=== PATIENT | male | born 1950 | race Caucasian/White ===

== ENCOUNTER 2020-09-29 09:02 | Inpatient (IN) ==
--- NOTE | 2020-09-29 09:16 | Emergency Department Note ---
HPI General Chief complaint: Fall Stated complaint: Fall, down for several days Time Seen by Provider: 09/29/20 09:06 Source: EMS Mode of arrival: EMS Limitations: no limitations History of Present Illness HPI Narrative: Narrative: Patient presents emergency department via EMS for evaluation of generalized weakness. He was last seen 8 days ago. He was found by his ex-spouse on the floor this morning. EMS found patient on the floor complaining of generalized pain including neck pain. He was found to have weakness on the left side. C- collar was placed and the patient was transported to the emergency department for further evaluation. Patient does not know how long is been on the floor. Does not recall falling to the floor. Complains of generalized pain. Clothes are saturated in urine and soiled. No other complaints. Related Data Previous Rx's Medication Instructions Recorded quetiapine 50 mg tablet 50 mg PO QHS #90 tab 08/29/20 lisinopril 10 mg tablet 10 mg PO QDAY #90 tab 09/01/20 simvastatin 40 mg tablet 40 mg PO QHS #90 tab 09/01/20 acetaminophen 300 mg-codeine 60 mg 1 tab PO Q4-6H PRN #560 tab 09/21/20 tablet baclofen 10 mg tablet 10 mg PO BID PRN #60 tab 09/21/20 Allergies Allergy/AdvReac Type Severity Reaction Status Date / Time No Known Drug Allergies Allergy Verified 09/29/20 09:02 Review of Systems ROS ROS Narrative: Narrative: As above, all other system reviewed and negative. PFS Narrative Patient History Narrative: Narrative: Reviewed Medical/Surgical/Family History All Active Problems (Updated 09/29/20 @ 12:46 by Hu Banks MD) Rhabdomyolysis (Acute) Acute renal failure (Acute) Acute hypernatremia (Acute) Weakness (Acute) Acute dehydration (Acute) Renal failure, chronic (Chronic) Arthritis (Chronic) Insomnia (Chronic) History of MRI of lumbar spine (Chronic ~2004) Encounter for health-related screening (Chronic) Low back pain (Chronic) Encounter for special screening examination for neoplasm of prostate (Chronic) Vitiligo (Chronic) Hyperlipidemia (Chronic) Lumbar radiculopathy (Chronic) Dermatitis (Chronic) Vitamin D deficiency, unspecified (Chronic) Abnormal levels of other serum enzymes (Chronic) Blood glucose abnormal (Chronic) Hypertension (Chronic) Medical History (Updated 09/29/20 @ 12:46 by Hu Banks MD) Abnormal levels of other serum enzymes Arthritis Blood glucose abnormal Dermatitis Encounter for health-related screening Encounter for special screening examination for neoplasm of prostate History of MRI of lumbar spine (~2004) Also went to [facility] Hyperlipidemia Hypertension Insomnia Low back pain Lumbar radiculopathy Vitamin D deficiency, unspecified Vitiligo Surgical History No pertinent past surgical history Family History Mother Throat cancer Sister Breast cancer Social History Smoking Status: Never smoker Exam Narrative Narrative: Narrative: Vital signs reviewed please see nursing documentation. General Limitations: no limitations Head Head: Present normocephalic and other (Pressure sore to left cheek) Eye Eye: Present normal appearance and PERRL Neck Neck: Present other (C-collar in place) Respiratory Respiratory: Absent respiratory distress Rectal Rectal: Present other (Skin breakdown over sacrum) Extremities Extremities: Present other (Multiple pressure sores to upper and lower extremities) Back Back: Present other (Generalized tenderness palpation over the thoracic and lumbar spine, no localizing bony tenderness, no swelling, abrasion, or ecchymosis.) Neurological Neurological: Present alert and other (Mail List Librarian strength weak but equal bilaterally, able to wiggle toes bilaterally, unable to lift either leg off the exam table.) Psychiatric Psychiatric: Present normal affect Skin Skin: Present other (Multiple areas of skin breakdown and pressure ulcers.) Course Vital Signs Vital signs: Vital Signs Temperature 96.7 F L 09/29/20 09:03 Pulse Rate 118 H 09/29/20 09:03 Respiratory Rate 22 09/29/20 09:03 Blood Pressure 174/160 09/29/20 09:03 Pulse Oximetry (%) 96 09/29/20 09:03 Temperature 98.1 F 09/29/20 12:15 Pulse Rate 91 H 09/29/20 12:15 Respiratory Rate 22 09/29/20 12:15 Blood Pressure 130/90 09/29/20 12:15 Pulse Oximetry (%) 97 09/29/20 12:15 [facility] MDM Narrative Medical decision making narrative: Narrative: Patient is hydrated IV fluids. Chest x-ray showed no acute cardiopulmonary pathology. CT brain and cervical spine are pending at time of dictation. I spoke with Dr. Chairez on-call hospitalist. Case reviewed in detail over the phone. Hospitalist evaluate the patient emergency department and agreed with admission. Discussed findings with the patient. His questions are answered. He is agreeable with the plan. Lab Data Result diagrams: 09/29/20 09:34 09/29/20 09:33 Labs: Lab Results 09/29/20 09/29/20 09/29/20 Range/Units 09:33 09:34 09:55 WBC 18.9 H (4.5-11.0) K/mcL RBC 4.08 L (4.50-5.90) M/mcL Hgb 13.7 (13.5-16.5) g/dL Hct 41.9 (41.0-55.0) % MCV 102.7 H (80.0-100.0) fL MCH 33.6 (26.0-34.0) pg MCHC 32.7 (31.0-36.0) g/dL RDW 12.6 (11.5-14.5) % Plt Count 296 (140-440) K/mcL MPV 11.3 H (7.4-10.4) fL Neut % (Auto) 85.4 H (38.0-78.0) % Lymph % (Auto) 5.2 L (15.0-49.0) % [place] % (Auto) 8.9 (1.0-12.0) % Eos % (Auto) 0.1 (0.0-7.0) % Baso % (Auto) 0.4 (0.0-2.0) % Lymph # (Auto) 0.98 L (1.50-4.80) K/mcL [place] # (Auto) 1.68 H (0.10-0.90) K/mcL Eos # (Auto) 0.02 (0.00-0.70) K/mcL Baso # (Auto) 0.07 (0.00-0.20) K/mcL Absolute Neutrophils 16.13 H (1.80-8.00) K/mcL Sodium 149 H (133-145) mmol/L Potassium 4.7 (3.3-5.1) mmol/L Chloride 104 (96-108) mmol/L Carbon Dioxide 21 L (22-30) mmol/L Anion Gap 24.0 H (8.0-16.0) BUN 163 H* (8-23) mg/dL Creatinine 3.4 H (0.7-1.2) mg/dL GFR Calculation 17 Glucose 171 H (70-105) mg/dL Calcium 10.4 (8.6-10.4) mg/dL Total Bilirubin 0.6 (0.1-1.0) mg/dL AST 104 H (<40) U/L ALT 124 H (<40) U/L Alkaline Phosphatase 102 (39-117) U/L Total Creatine Kinase 2293 H (24-195) U/L Total Protein 7.4 (5.9-8.4) gm/dL Albumin 3.5 (3.2-5.2) gm/dL Globulin 3.9 H (2.2-3.7) gm/dL Albumin/Globulin Ratio 0.9 L (1.0-2.3) Urine Color Yellow Urine Appearance Hazy A (Clear) Urine pH 5.0 (5.0-9.0) Ur Specific [place] 1.015 (1.000-1.035) Urine Protein Negative (Negative) mg/dL Urine Glucose (UA) Negative (Negative) mg/dL Urine Ketones Negative (Negative) mg/dL Urine Occult Blood 0.20 (Negative) mg/dL Urine Nitrate Negative (Negative) Urine Bilirubin Negative (Negative) mg/dL Urine Urobilinogen Negative mg/dL Ur Leukocyte Esterase Negative (Negative) /ug Urine RBC 7 H (0-3) /hpf Urine WBC 1 (0-4) /hpf Ur Squamous Epith Cells < 1 (0-4) /hpf Urine Bacteria None (0) /hpf Hyaline Casts 14 H (0-2) /lph Urine Mucus Few A (None) /hpf Ur Culture Indicated? No ED POC Tests ED POC Tests: SHY - SARS Antigen Negative Discharge Plan Patient/Caregiver Discharge Instructions Pt seen by SQUEEZER OPERATOR/PA only: No Clinical Impression: Rhabdomyolysis, Acute renal failure, Acute hypernatremia, Weakness, Acute dehydration Patient Disposition: Xfer As Inpt ([facility]) Follow up with: Shelia Boyd ARNP [Primary Care Provider] - Prescriptions: No Action quetiapine [Seroquel] 50 mg tablet 50 mg PO QHS Qty: 90 RF: 0 baclofen 10 mg tablet 10 mg PO BID PRN (Reason: spasms) Qty: 60 RF: 1 acetaminophen-codeine 300-60 mg tablet 1 tab PO Q4-6H PRN (Reason: pain) Qty: 560 RF: 0 lisinopril 10 mg tablet 10 mg PO QDAY Qty: 90 RF: 3 simvastatin 40 mg tablet 40 mg PO QHS Qty: 90 RF: 1
[2020-09-29] MEDS ORDERED: fentaNYL 100 MCG/2 ML VIAL IV ONE (09:53)
[2020-09-29] MEDS ORDERED: 0.9 % SODIUM CHLORIDE 1,000 ML IV ONE ×2 (10:01→11:00)
--- NOTE | 2020-09-29 10:12 | XRay Report ---
INDICATION: weakness TECHNIQUE: AP portable upright chest x-ray COMPARISON: Previous chest x-ray dated 03/30/2007 FINDINGS: Lungs:Lungs are negative. No focal pulmonary parenchymal infiltrate or mass Heart, vascular:No significant cardiomegaly. Pulmonary vascularity is normal. No pulmonary edema or pulmonary congestion Mediastinum, [place]:No mediastinal widening. No hilar mass Pleura:No pleural fluid. No pleural-based mass or calcification Skeletal:Negative. IMPRESSION: 1. Negative AP chest x-ray 2. No significant interval change Interpreted and Authenticated by: Liam Rubio 09/29/20
[2020-09-29 10:22] LABS: Basophils # (Auto) 0.07 K/mcL (0.00-0.20); Basophils % (Auto) 0.4 % (0.0-2.0); Eosinophils # (Auto) 0.02 K/mcL (0.00-0.70); Eosinophils % (Auto) 0.1 % (0.0-7.0); Hematocrit 41.9 % (41.0-55.0); Hemoglobin 13.7 g/dL (13.5-16.5); Lymphocytes # (Auto) 0.98 K/mcL (1.50-4.80); Lymphocytes % (Auto) 5.2 % (15.0-49.0); Mean Cell Volume 102.7 fL (80.0-100.0); Mean Corpuscular HGB Conc 32.7 g/dL (31.0-36.0); Mean Platelet Volume 11.3 fL (7.4-10.4); Monocytes # (Auto) 1.68 K/mcL (0.10-0.90); Monocytes % (Auto) 8.9 % (1.0-12.0); Neutrophils % (Auto) 85.4 % (38.0-78.0); Platelet Count 296 K/mcL (140-440); RBC 4.08 M/mcL (4.50-5.90); Red Cell Distribution Width 12.6 % (11.5-14.5); WBC 18.9 K/mcL (4.5-11.0)
[2020-09-29 10:54] LABS: ALT/SGPT 124 U/L (<40); AST/SGOT 104 U/L (<40); Albumin 3.5 gm/dL (3.2-5.2); Albumin/Globulin Ratio 0.9 (1.0-2.3); Alkaline Phosphatase 102 U/L (39-117); Bilirubin,Total 0.6 mg/dL (0.1-1.0); Blood Urea Nitrogen 163 mg/dL (8-23); Calcium 10.4 mg/dL (8.6-10.4); Carbon Dioxide 21 mmol/L (22-30); Chloride 104 mmol/L (96-108); Creatine Kinase 2293 U/L (24-195); Globulin 3.9 gm/dL (2.2-3.7); Glomerular Filtration Rate 17; Glucose 171 mg/dL (70-105)
--- NOTE | 2020-09-29 11:58 | Internal Med History&Physical ---
HPI History of Present Illness Patient information: Note initiated : 09/29/20 at 11:53 am Service Date, if different from initiated Date: [] Patient: Baldemar Polanco 69 y/o M admitted on for Fall, Down For Several Days. Chief Complaint: [] History of present illness: Mr. Polanco is a 69 year old M Presents to the ED by EMS after the ex-spouse found him lying on the ground covered with feces and urine. She last spoke with him 8 days ago. Looks like he had a primary care visit on the . Had generalized pain including neck pain and came in with a c-collar. Poor historian not able to give much of the history. Sounds like there was a question of some left-sided weakness but Work-up in the ED revealed hyponatremia and acute kidney injury with rhabdomyolysis. Urinalysis pending. Review of Systems: Says he has some headache and some fever chills. No chest or abdominal pain. PFSH PFSH All Active Problems Renal failure, chronic (Chronic) Arthritis (Chronic) Insomnia (Chronic) History of MRI of lumbar spine (Chronic ~2004) Encounter for health-related screening (Chronic) Low back pain (Chronic) Encounter for special screening examination for neoplasm of prostate (Chronic) Vitiligo (Chronic) Hyperlipidemia (Chronic) Lumbar radiculopathy (Chronic) Dermatitis (Chronic) Vitamin D deficiency, unspecified (Chronic) Abnormal levels of other serum enzymes (Chronic) Blood glucose abnormal (Chronic) Hypertension (Chronic) Medical History Abnormal levels of other serum enzymes Arthritis Blood glucose abnormal Dermatitis Encounter for health-related screening Encounter for special screening examination for neoplasm of prostate History of MRI of lumbar spine (~2004) Also went to [facility] Hyperlipidemia Hypertension Insomnia Low back pain Lumbar radiculopathy Vitamin D deficiency, unspecified Vitiligo Surgical History No pertinent past surgical history Family History Mother Throat cancer Sister Breast cancer Social History marital status: single occupational status: retired [employer] Home Medications and Allergies Home Medications Medication Instructions Recorded Confirmed Type quetiapine 50 mg tablet 50 mg PO QHS #90 tab 08/29/20 09/21/20 Rx lisinopril 10 mg tablet 10 mg PO QDAY #90 tab 09/01/20 09/21/20 Rx simvastatin 40 mg tablet 40 mg PO QHS #90 tab 09/01/20 09/21/20 Rx acetaminophen 300 mg-codeine 60 mg 1 tab PO Q4-6H PRN #560 tab 09/21/20 09/21/20 Rx tablet baclofen 10 mg tablet 10 mg PO BID PRN #60 tab 09/21/20 09/21/20 Rx Allergies Allergy/AdvReac Type Severity Reaction Status Date / Time No Known Drug Allergies Allergy Verified 09/29/20 09:02 EXAM Constitutional Vitals: Temp Pulse Resp BP Pulse Ox 97.9 F 96 H 22 134/93 98 09/29/20 11:30 09/29/20 11:15 09/29/20 11:30 09/29/20 11:30 09/29/20 11:15 Exam: General: Drowsy,, No acute Distress Eyes/N/T: EOMI, PERRL, dry MM Head/Neck: neck supple, normocephalic atraumatic CV: RRR, No murmurs, normal s1/s2 Pulm: Clear b/l, no wheezing/rhonchi/rales Abd: soft, nontender, +BS x4 Ext: no clubbing/cyanosis/edema Neuro: Drowsy but awakens mentation much improved from when he initially came to the ED. Told me his full name and his address. Not to place. Follows commands. His getter filler strength bilaterally appears symmetrical although very weak. Lower extremities severely weak symmetrically. Skin: warm/dry DATA Data Completed and Pending Labs: Labs from last 24 hours 09/29/20 09/29/20 09/29/20 09:55 09:34 09:33 WBC 18.9 H RBC 4.08 L Hgb 13.7 Hct 41.9 MCV 102.7 H MCH 33.6 MCHC 32.7 RDW 12.6 Plt Count 296 MPV 11.3 H Neut % (Auto) 85.4 H Lymph % (Auto) 5.2 L [place] % (Auto) 8.9 Eos % (Auto) 0.1 Baso % (Auto) 0.4 Lymph # (Auto) 0.98 L [place] # (Auto) 1.68 H Eos # (Auto) 0.02 Baso # (Auto) 0.07 Absolute Neutrophils 16.13 H Sodium 149 H Potassium 4.7 Chloride 104 Carbon Dioxide 21 L Anion Gap 24.0 H BUN 163 H* Creatinine 3.4 H GFR Calculation 17 Glucose 171 H Calcium 10.4 Total Bilirubin 0.6 AST 104 H ALT 124 H Alkaline Phosphatase 102 Total Creatine Kinase 2293 H Total Protein 7.4 Albumin 3.5 Globulin 3.9 H Albumin/Globulin Ratio 0.9 L Urine Color Pending Urine Appearance Pending Urine pH Pending Ur Specific [place] Pending Urine Protein Pending Urine Glucose (UA) Pending Urine Ketones Pending Urine Occult Blood Pending Urine Nitrate Pending Urine Bilirubin Pending Urine Urobilinogen Pending Ur Leukocyte Esterase Pending A/P Narrative A/P Narrative: A: *ZOHRA on CKD III: *Rhabdomyolysis: 2/2 [address] *Hypernatremia: 2/2 dehydration *Leukocytosis: reactive vs infection, afebrile, pending UA, CXR unremarkable *Encephalopathy: 2/2 above, mentations started improving in ED after IVF's *HTN/HLD: *Chronic LBP: *Generalized weakness/deconditioning/fall: *Transaminitis: * P: -bicarb gtt, f/u UA pH -f/u sodium and cpk -pending UA -hold home ACEI for zohra -cont home baclofen -CT brain c-spine pending - -PT/OT -ppx: Heparin Time Spent With Patient Time: Total time spent is greater than 50% in coordination of care (as docu mented) at patient's floor/unit and/or counseling patient:
[2020-09-29 12:17] LABS: Appearance,Urine HAZY (Clear); Bilirubin,Urine Negative (Negative); Color,Urine YELLOW; Culture Indicated,Urine No; Glucose,Urine (UA) Negative (Negative); Ketones,Urine Negative (Negative); Leukocyte Esterase,Urine Negative /ug (Negative); Mucus,Urine FEW /hpf; Nitrate,Urine Negative (Negative); Protein,Urine Negative (Negative); Specific Gravity,Urine 1.015 (1.000-1.035); Urine Hyaline Cast 14 /lph (0-2); Urine RBC 7 /hpf (0-3); Urine Squamous Epithelial Cell < 1 /hpf (0-4); Urine WBC 1 /hpf (0-4); Urobilinogen,Urine Negative
--- NOTE | 2020-09-29 13:01 | Cat Scan Report ---
INDICATION: S/p fall, L sided weakness COMPARISON: None. TECHNIQUE: Axial noncontrast-enhanced images through the brain. Sagittally and coronally reformatted images. FINDINGS: Cerebral hemispheres:No intra-axial hemorrhage. There is cerebral atrophy with enlarged superficial subarachnoid spaces and ventricles. No focal intra-axial attenuation abnormality or localized mass effect. No midline shift. Brainstem and cerebellum:No intra-axial abnormality Extra-axial:No acute hemorrhage. No subdural or epidural hematoma. No subarachnoid hemorrhage. Basilar cisterns are normal Calvarial:No calvarial fracture. No lytic lesion Temporal bones are negative. No destructive lesions Soft tissue, orbits, sinuses:Orbits and visualized facial soft tissues are negative. Mild inflammatory mucosal thickening within ethmoid and left frontal sinuses Nasal bones are angulated toward the right. Nasal bones are not well evaluated and fractures are not excluded IMPRESSION: 1. Cerebral atrophy 2. No acute intracranial hemorrhage 3. Mild inflammatory disease in the paranasal sinuses The exam was performed using radiation dose optimization techniques including, but not limited to, automated exposure control, adjustment of the mA and/or kV according to patient size and use of iterative reconstruction technique. Interpreted and Authenticated by: Liam Rubio 09/29/20
--- NOTE | 2020-09-29 13:07 | Cat Scan Report ---
INDICATION: s/p fall, L sided weakness, neck pain COMPARISON: None. TECHNIQUE: Axial thin section images through the cervical spine. Sagittally and coronally reformatted images. The exam was performed using radiation dose optimization techniques including, but not limited to, automated exposure control, adjustment of the mA and/or kV according to patient size and use of iterative reconstruction technique. FINDINGS: Vertebral bodies, spinous processes:No vertebral body or spinous process fracture. No acute abnormality. Alignment is anatomic without anterolisthesis Normal odontoid process. No fracture. Occipital condyles and C1 are negative. No atlantoaxial subluxation. There are changes consistent with DISH. No acute posttraumatic abnormality. Facets:No perched or locked facet. No facet complex fracture. Disc spaces:Marked degenerative disc narrowing at C2-C3, C3-C4, C4-C5, C5-C6, C6-C7. No detectable soft tissue disc herniation Temporal bones:Negative. No basilar skull fracture Cervical soft tissues:Negative. No prevertebral soft tissue swelling. No focal soft tissue mass or acute abnormality Lung apices:No pneumothorax. No pulmonary contusion. IMPRESSION: 1. 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 No cervical spine fracture Interpreted and Authenticated by: Liam Rubio 09/29/20
[2020-09-29 13:38] LABS: POC Blood Urea Nitrogen > 140 mg/dL; POC CO2 22 mmol/L (22-30); POC Calcium, Ionized 1.08 mmEq/L (1.16-1.32); POC Chloride 116 mEq/L (96-108); POC Creatinine 3.4 mg/dL (0.6-1.2); POC Glucose, Random 142 mg/dL (70-105); POC Hematocrit 31 % (41-55); POC Potassium 4.2 mEql/L (3.3-5.1); POC Sodium 150 mEq/L (133-145)
[2020-09-29] MEDS ORDERED: DEXTROSE 5% IN WATER 500 ML IV SCH (14:30)
[2020-09-29 14:31] LABS: Lymphocytes % 5 % (15-49); Macrocytosis 1+ (None Seen); Metamyelocytes % 1 %; Monocytes % (Manual) 4 % (1-12); Platelet Estimate NORMAL (Normal); RBC Morphology ABNORMAL (Normal); Reactive Lymphocytes 1 % (0-2); Segmented Neutrophils % 89 % (38-78)
[2020-09-29] MEDS ORDERED: ACETAMINOPHEN 325 MG TABLET PO PRN (14:42)
[2020-09-29] MEDS ORDERED: IPRATROPIUM/ALBUTEROL 3 ML AMPUL.NEB NEB PRN (14:42)
[2020-09-29] MEDS ORDERED: SENNOSIDES 1 TABLET PO PRN (14:42)
[2020-09-29] MEDS ORDERED: POTASSIUM CHLORIDE 20 MEQ TABLET PO PRN ×2 (14:42)
[2020-09-29] MEDS ORDERED: ONDANSETRON 4 MG/2 ML VIAL IV PRN (14:42)
[2020-09-29] MEDS ORDERED: POTASSIUM CHLORIDE 40 MEQ in DEXTROSE 5% IN WATER 500 ML IV PRN (14:42)
[2020-09-29] MEDS ORDERED: MAGNESIUM SULFATE 2 GM/50 ML BAG IV PRN (14:42)
[2020-09-29] MEDS ORDERED: POLYETHYLENE GLYCOL 3350 17 GM PACKET PO PRN (14:42)
[2020-09-29] MEDS: 0.9 % SODIUM CHLORIDE 10 ML SYRINGE IV SCH ×2 (14:58→20:45)
[2020-09-29] MEDS ORDERED: SODIUM BICARBONATE VIAL 150 MEQ in WATER FOR INJECTION,STERILE 850 ML IV SCH (15:00)
[2020-09-29] MEDS ORDERED: ACETAMINOPHEN W/CODEINE #3 1 TABLET PO PRN (15:11)
[2020-09-29] MEDS: HEPARIN 5,000 UNIT/ML VIAL SQ SCH (20:45)
[2020-09-29] MEDS: SIMVASTATIN 40 MG TABLET PO SCH (20:45)
[2020-09-29] MEDS: DOCUSATE SODIUM 100 MG CAPSULE PO SCH (20:45)
[2020-09-29] MEDS ORDERED: QUEtiapine 25 MG TABLET PO SCH (21:00)
[2020-09-29 21:51] LABS: Appearance,Urine HAZY (Clear); Bacteria,Urine MANY /hpf (0); Bilirubin,Urine Negative (Negative); Color,Urine YELLOW; Culture Indicated,Urine Yes; Glucose,Urine (UA) Negative (Negative); Ketones,Urine Negative (Negative); Leukocyte Esterase,Urine Negative /ug (Negative); Nitrate,Urine Negative (Negative); Protein,Urine Negative (Negative); Specific Gravity,Urine 1.015 (1.000-1.035); Urine RBC 6 /hpf (0-3); Urine Squamous Epithelial Cell 0 /hpf (0-4); Urine WBC 1 /hpf (0-4); Urobilinogen,Urine Negative
[2020-09-30] MEDS: 0.9 % SODIUM CHLORIDE 10 ML SYRINGE IV SCH ×3 (05:35→20:33)
[2020-09-30 06:49] LABS: Basophils # (Auto) 0.05 K/mcL (0.00-0.20); Basophils % (Auto) 0.4 % (0.0-2.0); Eosinophils # (Auto) 0.11 K/mcL (0.00-0.70); Eosinophils % (Auto) 0.9 % (0.0-7.0); Hematocrit 31.7 % (41.0-55.0); Lymphocytes # (Auto) 1.28 K/mcL (1.50-4.80); Mean Cell Volume 104.6 fL (80.0-100.0); Mean Corpuscular HGB Conc 31.5 g/dL (31.0-36.0); Mean Platelet Volume 11.4 fL (7.4-10.4); Monocytes # (Auto) 1.13 K/mcL (0.10-0.90); Monocytes % (Auto) 8.8 % (1.0-12.0); Neutrophils % (Auto) 79.9 % (38.0-78.0); Platelet Count 203 K/mcL (140-440); RBC 3.03 M/mcL (4.50-5.90); Red Cell Distribution Width 12.7 % (11.5-14.5); WBC 12.9 K/mcL (4.5-11.0)
--- NOTE | 2020-09-30 07:28 | Internal Med Progress Note ---
SUBJECTIVE Subjective Patient information: Note initiated : 09/30/20 at 7:23 am Service Date, if different from initiated Date: [] Patient: Baldemar Polanco 69 y/o M admitted on 09/29/20 for Fall, Down For Several Days. Chief Complaint: [] Interval history: History of present illness: Mr. Polanco is a 69 year old M Presents to the ED by EMS after the ex-spouse found him lying on the ground covered with feces and urine. She last spoke with him 8 days ago. Looks like he had a primary care visit on the . Had generalized pain including neck pain and came in with a c-collar. Poor historian not able to give much of the history. Sounds like there was a question of some left-sided weakness but Work-up in the ED revealed hyponatremia and acute kidney injury with rhabdomyolysis. Urinalysis pending. 09/30 Feels tired. Looks much better. Mentation much better. Has some left wrist pain. Review of Systems: denies headache/fever/chills/nausea/vomiting/chest or abdominal pain/cough/dyspnea/diarrhea. Otherwise see above. Constitutional Vitals: Vital Signs Temp Pulse Resp BP Pulse Ox 99.6 F H 91 H 16 97/64 98 09/30/20 04:00 09/30/20 04:00 09/30/20 04:00 09/30/20 04:00 09/30/20 04:00 Period Temp Pulse Resp BP Sys/Nelson Pulse Ox Last 24 Hr 96.7 F-100.1 F 84-118 13-25 84-174/54-160 95-100 Intake and Output 09/29/20 09/30/20 09/30/20 21:59 05:59 13:59 Intake Total 500 1360 Output Total 678 327 135 Balance -178 1033 -135 Weight 83.28 kg Intake & Output: Intake & Output 09/29/20 09/30/20 09/30/20 21:59 05:59 13:59 Intake Total 500 1360 Output Total 678 327 135 Balance -178 1033 -135 Weight 83.28 kg Intake: IV 500 1000 Dextrose 5% in Water 500 ml @ 500 150 mls/hr IV .Q3H20M JEAN CLAUDE Rx#: [id number] Sodium Bicarbonate Vial 150 Meq 1000 In Water 850 ml @ 100 mls/hr IV Q10H JEAN CLAUDE Rx#:[id number] Oral 360 Output: Urine Catheter Amount 478 327 135 Void Amount 200 Other: Meal Dinner Percent of Meal Consumed 100% Feeding Ability Total Assistance Urine Appearance Sediment Clear Clear Uretheral (Geller) Sediment Urine Color Tea Colored Dark Yellow Dark Yellow Uretheral (Geller) Tea Colored Urine Odor Normal Stool Size Smear Stool Color Black Stool Consistency Soft Exam: General: awake, No acute Distress Eyes/N/T: EOMI, Head/Neck: neck supple, CV: RRR, No murmurs, Pulm: Clear b/l, no wheezing/rhonchi/rales Abd: soft, nontender, +BS x4 Ext: no clubbing/cyanosis/edema Neuro: Awake, mentation much better. Follows commands. Moves extremities. A&O, Skin: warm/dry OBJ DATA Labs CBC & Chem 7: 09/30/20 05:13 09/30/20 05:13 Labs: Abnormal Lab Results 09/30/20 09/29/20 09/29/20 05:13 21:09 13:17 WBC 12.9 H RBC 3.03 L Hgb 10.0 L Hct 31.7 L POC Hct 31 L MCV 104.6 H MPV 11.4 H Neut % (Auto) 79.9 H Lymph % (Auto) 10.0 L Lymph # (Auto) 1.28 L [place] # (Auto) 1.13 H Seg Neutrophils % Lymphocytes % Absolute Neutrophils 10.29 H RBC Morphology Macrocytosis POC Sodium 150 H Sodium POC Chloride 116 H Carbon Dioxide Anion Gap POC BUN > 140 H* BUN Creatinine POC Creatinine 3.4 H Glucose POC Glucose 142 H POC WB Ioniz Calcium 1.08 L AST ALT Total Creatine Kinase Globulin Albumin/Globulin Ratio Urine Appearance Hazy A Urine RBC 6 H Urine Bacteria Many A Hyaline Casts Urine Mucus 09/29/20 09/29/20 09/29/20 13:17 09:55 09:34 WBC 18.9 H RBC 4.08 L Hgb Hct POC Hct MCV 102.7 H MPV 11.3 H Neut % (Auto) 85.4 H Lymph % (Auto) 5.2 L Lymph # (Auto) 0.98 L [place] # (Auto) 1.68 H Seg Neutrophils % 89 H Lymphocytes % 5 L Absolute Neutrophils 16.13 H RBC Morphology Abnormal A Macrocytosis 1+ A POC Sodium Sodium POC Chloride Carbon Dioxide Anion Gap POC BUN BUN Creatinine POC Creatinine Glucose POC Glucose POC WB Ioniz Calcium AST ALT Total Creatine Kinase Globulin Albumin/Globulin Ratio Urine Appearance Hazy A Urine RBC 7 H Urine Bacteria Hyaline Casts 14 H Urine Mucus Few A 09/29/20 09:33 WBC RBC Hgb Hct POC Hct MCV MPV Neut % (Auto) Lymph % (Auto) Lymph # (Auto) [place] # (Auto) Seg Neutrophils % Lymphocytes % Absolute Neutrophils RBC Morphology Macrocytosis POC Sodium Sodium 149 H POC Chloride Carbon Dioxide 21 L Anion Gap 24.0 H POC BUN BUN 163 H* Creatinine 3.4 H POC Creatinine Glucose 171 H POC Glucose POC WB Ioniz Calcium AST 104 H ALT 124 H Total Creatine Kinase 2293 H Globulin 3.9 H Albumin/Globulin Ratio 0.9 L Urine Appearance Urine RBC Urine Bacteria Hyaline Casts Urine Mucus Meds: Medications Acetaminophen (Acetaminophen 325 Mg Tablet) 650 mg PO Q6HP PRN PRN Reason: PAIN/FEVER > 101 Acetaminophen/Codeine Phosphate (Acetaminophen W/Codeine #3 1 Tablet) 1 tab PO Q4-6HP PRN PRN Reason: Pain Last Admin: 09/29/20 22:45 Dose: 1 tab Documented by: Hydrocodone Bitart/Acetaminophen (Hydrocodone/Apap 5/325mg Tablet) 1 tab PO Q4HP PRN PRN Reason: PAIN LEVEL 3-6 Albuterol/Ipratropium (Ipratropium/Albuterol 3 Ml Ampul.Neb) 3 ml NEB Q4HP PRN PRN Reason: Shortness Of Breath Baclofen (Baclofen 10 Mg Tablet) 10 mg PO BID PRN PRN Reason: spasms Docusate Sodium (Docusate Sodium 100 Mg Capsule) 100 mg PO BID [facility] Last Admin: 09/29/20 20:45 Dose: Not Given Documented by: Heparin Sodium (Porcine) (Heparin 5,000 Unit/Ml Vial) 5,000 unit SQ Q12 [facility] Last Admin: 09/29/20 20:45 Dose: 5,000 unit Documented by: Potassium Chloride 40 meq/ (Dextrose) 520 mls @ 130 mls/hr IV UD PRN PRN Reason: Potassium < 3 Magnesium Sulfate (Magnesium Sulfate) 2 gm in 50 mls @ 50 mls/hr IV UD PRN PRN Reason: Magnesium </= 1.6 Ondansetron HCl (Ondansetron 4 Mg/2 Ml Vial) 4 mg IV Q4HP PRN PRN Reason: Nausea And Vomiting Polyethylene Glycol (Polyethylene Glycol 3350 17 Gm Packet) 17 gm PO DAILYP PRN PRN Reason: Constipation Potassium Chloride (Potassium Chloride 20 Meq Tablet) 40 meq PO UD PRN PRN Reason: Potssium is 3-3.5 Potassium Chloride (Potassium Chloride 20 Meq Tablet) 40 meq PO UD PRN PRN Reason: Potassium < 3 Quetiapine Fumarate (Quetiapine 25 Mg Tablet) 50 mg PO HS [facility] Last Admin: 09/29/20 20:45 Dose: 50 mg Documented by: Senna (Sennosides 1 Tablet) 2 tab PO DAILYP PRN PRN Reason: Constipation Simvastatin (Simvastatin 40 Mg Tablet) 40 mg PO QHS [facility] Last Admin: 09/29/20 20:45 Dose: 40 mg Documented by: Sodium Chloride (0.9 % Sodium Chloride 10 Ml Syringe) 10 ml IV Q8 [facility] Last Admin: 09/30/20 05:35 Dose: 10 ml Documented by: A/P Narrative A/P Narrative: A: *ZOHRA on CKD III: improving *Rhabdomyolysis: 2/2 time on ground *Hypernatremia: 2/2 dehydration *Leukocytosis: reactive vs infection, afebrile, UA/CXR unremarkable -improving w/o abx *Encephalopathy: 2/2 above, mentations started improving in ED after IVF's -improving *HTN/HLD: *Chronic LBP: *Generalized weakness/deconditioning/fall: *Transaminitis: improving *Macrocytic anemia: b12/folate ok P: -d5w, -f/u sodium and cpk -hold home ACEI for zohra -cont home baclofen - -PT/OT -ppx: Heparin DNR per pt Time Spent With Patient Time: Total time spent is greater than 50% in coordination of care (as documented) at patient's floor/unit and/or counseling patient: QUALITY VTE Deep Vein Thrombosis/Pulmonary Embolism Present on Admission: No
[2020-09-30] MEDS: DEXTROSE 5% IN WATER 1,000 ML IV SCH ×2 (07:42→13:31)
[2020-09-30 07:52] LABS: POC Blood Urea Nitrogen > 140 mg/dL; POC CO2 27 mmol/L (22-30); POC Calcium, Ionized 1.07 mmEq/L (1.16-1.32); POC Chloride 110 mEq/L (96-108); POC Creatinine 2.9 mg/dL (0.6-1.2); POC Glucose, Random 139 mg/dL (70-105); POC Hematocrit 31 % (41-55); POC Potassium 3.7 mEql/L (3.3-5.1); POC Sodium 149 mEq/L (133-145)
[2020-09-30 07:58] LABS: ALT/SGPT 88 U/L (<40); AST/SGOT 71 U/L (<40); Albumin 2.8 gm/dL (3.2-5.2); Albumin/Globulin Ratio 0.9 (1.0-2.3); Alkaline Phosphatase 83 U/L (39-117); Bilirubin,Direct < 0.2 mg/dL (0-0.3); Bilirubin,Total 0.4 mg/dL (0.1-1.0); Blood Urea Nitrogen 145 mg/dL (8-23); Calcium 8.8 mg/dL (8.6-10.4); Carbon Dioxide 27 mmol/L (22-30); Chloride 110 mmol/L (96-108); Globulin 3.1 gm/dL (2.2-3.7); Glomerular Filtration Rate 26; Glucose 128 mg/dL (70-105); Lactate Dehydrogenase 283 U/L (135-225); Phosphorous 4.6 mg/dL (2.5-4.5); Triglycerides 135 mg/dL (<150); Uric Acid 17.9 mg/dL (2.5-8.0)
[2020-09-30] MEDS ORDERED: DEXTROSE 5% IN WATER 500 ML IV SCH (08:45)
[2020-09-30] MEDS: HEPARIN 5,000 UNIT/ML VIAL SQ SCH ×2 (09:11→20:30)
[2020-09-30] MEDS: DOCUSATE SODIUM 100 MG CAPSULE PO SCH ×2 (09:56→20:30)
[2020-09-30] MEDS ORDERED: ALBUMIN HUMAN 25 GM/100 ML BAG IV ONE (11:03)
[2020-09-30] MEDS ORDERED: LACTATED RINGERS 250 ML IV ONE (11:04)
[2020-09-30 12:25] LABS: POC Blood Urea Nitrogen > 140 mg/dL; POC CO2 27 mmol/L (22-30); POC Chloride 107 mEq/L (96-108); POC Glucose, Random 187 mg/dL (70-105); POC Hematocrit 26 % (41-55); POC Potassium 3.5 mEql/L (3.3-5.1); POC Sodium 147 mEq/L (133-145)
--- NOTE | 2020-09-30 12:57 | XRay Report ---
INDICATION: Fall TECHNIQUE: PA, oblique, lateral left wrist COMPARISON: None. FINDINGS: No acute left wrist fracture. No posttraumatic abnormality. No soft tissue gas or radiopaque foreign body Moderate degenerative joint disease in the left radiocarpal joint. There is degenerative disease in the distal radial ulnar joint. There is a subchondral cyst within the left lunate. No pathologic fracture. There is degenerative disease in the triscaphe joint and 1st carpal metacarpal joint. Incidental note is made of atherosclerotic calcification IMPRESSION: 1. No left wrist fracture 2. Degenerative joint disease Interpreted and Authenticated by: Liam Rubio 09/30/20
[2020-09-30 18:15] LABS: POC CO2 27 mmol/L (22-30); POC Chloride 105 mEq/L (96-108); POC Creatinine 2.5 mg/dL (0.6-1.2); POC Glucose, Random 148 mg/dL (70-105); POC Hematocrit 28 % (41-55); POC Potassium 3.5 mEql/L (3.3-5.1); POC Sodium 144 mEq/L (133-145)
[2020-09-30] MEDS: DEXTROSE 5%-1/2NS 1,000 ML IV SCH (19:27)
[2020-09-30 19:37] LABS: POC Blood Urea Nitrogen > 140 mg/dL; POC Calcium, Ionized 1.08 mmEq/L (1.16-1.32)
[2020-09-30] MEDS: SIMVASTATIN 40 MG TABLET PO SCH (20:30)
[2020-09-30] MEDS: BACLOFEN 10 MG TABLET PO PRN (20:32)
[2020-10-01 00:14] LABS: POC Blood Urea Nitrogen 138 mg/dL (6-20); POC CO2 26 mmol/L (22-30); POC Calcium, Ionized 1.12 mmEq/L (1.16-1.32); POC Chloride 101 mEq/L (96-108); POC Glucose, Random 150 mg/dL (70-105); POC Hematocrit 28 % (41-55); POC Potassium 3.5 mEql/L (3.3-5.1); POC Sodium 143 mEq/L (133-145)
[2020-10-01] MEDS: DEXTROSE 5%-1/2NS 1,000 ML IV SCH (03:13)
[2020-10-01] MEDS: 0.9 % SODIUM CHLORIDE 10 ML SYRINGE IV SCH ×3 (05:17→20:11)
[2020-10-01 06:34] LABS: Basophils # (Auto) 0.05 K/mcL (0.00-0.20); Basophils % (Auto) 0.4 % (0.0-2.0); Eosinophils # (Auto) 0.25 K/mcL (0.00-0.70); Eosinophils % (Auto) 1.9 % (0.0-7.0); Hematocrit 30.2 % (41.0-55.0); Hemoglobin 9.5 g/dL (13.5-16.5); Lymphocytes # (Auto) 1.48 K/mcL (1.50-4.80); Lymphocytes % (Auto) 11.4 % (15.0-49.0); Mean Cell Volume 106.7 fL (80.0-100.0); Mean Corpuscular HGB Conc 31.5 g/dL (31.0-36.0); Mean Platelet Volume 11.5 fL (7.4-10.4); Monocytes # (Auto) 0.95 K/mcL (0.10-0.90); Monocytes % (Auto) 7.3 % (1.0-12.0); Platelet Count 175 K/mcL (140-440); RBC 2.83 M/mcL (4.50-5.90); Red Cell Distribution Width 12.5 % (11.5-14.5); WBC 12.9 K/mcL (4.5-11.0)
[2020-10-01 07:47] LABS: ALT/SGPT 70 U/L (<40); AST/SGOT 61 U/L (<40); Albumin 2.7 gm/dL (3.2-5.2); Alkaline Phosphatase 70 U/L (39-117); Bilirubin,Direct < 0.2 mg/dL (0-0.3); Bilirubin,Total 0.4 mg/dL (0.1-1.0); Blood Urea Nitrogen 107 mg/dL (8-23); Calcium 8.4 mg/dL (8.6-10.4); Carbon Dioxide 26 mmol/L (22-30); Chloride 106 mmol/L (96-108); Globulin 2.8 gm/dL (2.2-3.7); Glomerular Filtration Rate 37; Glucose 137 mg/dL (70-105); Lactate Dehydrogenase 246 U/L (135-225); Phosphorous 2.7 mg/dL (2.5-4.5); Triglycerides 87 mg/dL (<150); Uric Acid 13.9 mg/dL (2.5-8.0)
--- NOTE | 2020-10-01 07:48 | Internal Med Progress Note ---
SUBJECTIVE Subjective Patient information: Note initiated : 10/01/20 at 7:43 am Service Date, if different from initiated Date: [] Patient: Baldemar Polanco 69 y/o M admitted on 09/29/20 for Fall, Down For Several Days. Chief Complaint: [] Interval history: History of present illness: Mr. Polanco is a 69 year old M Presents to the ED by EMS after the ex-spouse found him lying on the ground covered with feces and urine. She last spoke with him 8 days ago. Looks like he had a primary care visit on the . Had generalized pain including neck pain and came in with a c-collar. Poor historian not able to give much of the history. Sounds like there was a question of some left-sided weakness but Work-up in the ED revealed hyponatremia and acute kidney injury with rhabdomyolysis. Urinalysis pending. 09/30 Feels tired. Looks much better. Mentation much better. Has some left wrist pain. 10/01 Feels better. Chemistry much improved. Renal function improved. Review of Systems: denies headache/fever/chills/nausea/vomiting/chest or abdominal pain/cough/dyspnea/diarrhea. Otherwise see above. Constitutional Vitals: Vital Signs Temp Pulse Resp BP Pulse Ox 99.6 F H 74 17 155/69 100 10/01/20 06:01 10/01/20 06:01 10/01/20 06:01 10/01/20 06:01 10/01/20 06:01 Period Temp Pulse Resp BP Sys/Nelson Pulse Ox Last 24 Hr 99.0 F-100.1 F 68-101 9-18 75-176/46-148 81-100 Intake and Output 09/30/20 10/01/20 10/01/20 21:59 05:59 13:59 Intake Total 1327 1241 Output Total 575 902 Balance 752 339 Weight 85.502 kg Intake & Output: Intake & Output 09/30/20 10/01/20 10/01/20 21:59 05:59 13:59 Intake Total 1327 1241 Output Total 575 902 Balance 752 339 Weight 85.502 kg Intake: IV 747 971 Dextrose 5% in Water 1,000 ml @ 747 150 mls/hr IV .Q6H40M [facility] Rx#: [id number] Dextrose 5%-1/2Ns IV Solution 1 971 ,000 ml @ 125 mls/hr IV .Q8H [facility] Rx#:[id number] Oral 580 270 Output: Urine Catheter Amount 575 902 Other: Meal Dinner Percent of Meal Consumed 25% Urine Appearance Cloudy Cloudy Sediment Sediment Uretheral (Geller) Cloudy Sediment Urine Color Dark Yellow Bright Yellow Uretheral (Geller) Straw Stool Size Smear Stool Color Black Stool Consistency Loose # of times incontinent of 1 Bowels Exam: General: awake, No acute Distress Eyes/N/T: EOMI, Head/Neck: neck supple, CV: RRR, No murmurs, Pulm: Clear b/l, no wheezing/rhonchi/rales Abd: soft, nontender, +BS x4 Ext: no clubbing/cyanosis/edema Neuro: Awake, mentation much better. Follows commands. Moves extremities. A&O, Skin: warm/dry, pressure wounds to left side of body/face OBJ DATA Labs CBC & Chem 7: 10/01/20 05:10 10/01/20 05:10 Labs: Abnormal Lab Results 10/01/20 09/30/20 09/30/20 05:10 17:56 12:14 WBC 12.9 H RBC 2.83 L Hgb 9.5 L Hct 30.2 L POC Hct 28 L 26 L MCV 106.7 H MPV 11.5 H Neut % (Auto) 79.0 H Lymph % (Auto) 11.4 L Lymph # (Auto) 1.48 L [place] # (Auto) 0.95 H Seg Neutrophils % Lymphocytes % Absolute Neutrophils 10.21 H RBC Morphology Macrocytosis POC Sodium 147 H Sodium POC Chloride Chloride Carbon Dioxide Anion Gap POC BUN > 140 H* > 140 H* BUN Creatinine POC Creatinine 2.5 H 3.0 H Glucose POC Glucose 148 H 187 H Uric Acid POC WB Ioniz Calcium 1.08 L 1.10 L Phosphorus Magnesium AST ALT Lactate Dehydrogenase Total Creatine Kinase Albumin Globulin Albumin/Globulin Ratio Urine Appearance Urine RBC Urine Bacteria Hyaline Casts Urine Mucus 09/30/20 09/30/20 09/30/20 07:40 05:13 05:13 WBC 12.9 H RBC 3.03 L Hgb 10.0 L Hct 31.7 L POC Hct 31 L MCV 104.6 H MPV 11.4 H Neut % (Auto) 79.9 H Lymph % (Auto) 10.0 L Lymph # (Auto) 1.28 L [place] # (Auto) 1.13 H Seg Neutrophils % Lymphocytes % Absolute Neutrophils 10.29 H RBC Morphology Macrocytosis POC Sodium 149 H Sodium 154 H POC Chloride 110 H Chloride 110 H Carbon Dioxide Anion Gap 17.0 H POC BUN > 140 H* BUN 145 H* Creatinine 2.4 H POC Creatinine 2.9 H Glucose 128 H POC Glucose 139 H Uric Acid 17.9 H POC WB Ioniz Calcium 1.07 L Phosphorus 4.6 H Magnesium 3.4 H AST 71 H ALT 88 H Lactate Dehydrogenase 283 H Total Creatine Kinase Albumin 2.8 L Globulin Albumin/Globulin Ratio 0.9 L Urine Appearance Urine RBC Urine Bacteria Hyaline Casts Urine Mucus 09/30/20 09/30/20 09/29/20 05:13 00:01 21:09 WBC RBC Hgb Hct POC Hct 28 L MCV MPV Neut % (Auto) Lymph % (Auto) Lymph # (Auto) [place] # (Auto) Seg Neutrophils % Lymphocytes % Absolute Neutrophils RBC Morphology Macrocytosis POC Sodium Sodium POC Chloride Chloride Carbon Dioxide Anion Gap POC BUN 138 H* BUN Creatinine POC Creatinine 2.0 H Glucose POC Glucose 150 H Uric Acid POC WB Ioniz Calcium 1.12 L Phosphorus Magnesium AST ALT Lactate Dehydrogenase Total Creatine Kinase 1518 H Albumin Globulin Albumin/Globulin Ratio Urine Appearance Hazy A Urine RBC 6 H Urine Bacteria Many A Hyaline Casts Urine Mucus 09/29/20 09/29/20 09/29/20 13:17 13:17 09:55 WBC RBC Hgb Hct POC Hct 31 L MCV MPV Neut % (Auto) Lymph % (Auto) Lymph # (Auto) [place] # (Auto) Seg Neutrophils % 89 H Lymphocytes % 5 L Absolute Neutrophils RBC Morphology Abnormal A Macrocytosis 1+ A POC Sodium 150 H Sodium POC Chloride 116 H Chloride Carbon Dioxide Anion Gap POC BUN > 140 H* BUN Creatinine POC Creatinine 3.4 H Glucose POC Glucose 142 H Uric Acid POC WB Ioniz Calcium 1.08 L Phosphorus Magnesium AST ALT Lactate Dehydrogenase Total Creatine Kinase Albumin Globulin Albumin/Globulin Ratio Urine Appearance Hazy A Urine RBC 7 H Urine Bacteria Hyaline Casts 14 H Urine Mucus Few A 09/29/20 09/29/20 09:34 09:33 WBC 18.9 H RBC 4.08 L Hgb Hct POC Hct MCV 102.7 H MPV 11.3 H Neut % (Auto) 85.4 H Lymph % (Auto) 5.2 L Lymph # (Auto) 0.98 L [place] # (Auto) 1.68 H Seg Neutrophils % Lymphocytes % Absolute Neutrophils 16.13 H RBC Morphology Macrocytosis POC Sodium Sodium 149 H POC Chloride Chloride Carbon Dioxide 21 L Anion Gap 24.0 H POC BUN BUN 163 H* Creatinine 3.4 H POC Creatinine Glucose 171 H POC Glucose Uric Acid POC WB Ioniz Calcium Phosphorus Magnesium AST 104 H ALT 124 H Lactate Dehydrogenase Total Creatine Kinase 2293 H Albumin Globulin 3.9 H Albumin/Globulin Ratio 0.9 L Urine Appearance Urine RBC Urine Bacteria Hyaline Casts Urine Mucus Meds: Medications Acetaminophen (Acetaminophen 325 Mg Tablet) 650 mg PO Q6HP PRN PRN Reason: PAIN/FEVER > 101 Acetaminophen/Codeine Phosphate (Acetaminophen W/Codeine #3 1 Tablet) 1 tab PO Q4-6HP PRN PRN Reason: Pain Last Admin: 09/29/20 22:45 Dose: 1 tab Documented by: Hydrocodone Bitart/Acetaminophen (Hydrocodone/Apap 5/325mg Tablet) 1 tab PO Q4HP PRN PRN Reason: PAIN LEVEL 3-6 Albuterol/Ipratropium (Ipratropium/Albuterol 3 Ml Ampul.Neb) 3 ml NEB Q4HP PRN PRN Reason: Shortness Of Breath Baclofen (Baclofen 10 Mg Tablet) 10 mg PO BID PRN PRN Reason: spasms Last Admin: 09/30/20 20:32 Dose: 10 mg Documented by: Docusate Sodium (Docusate Sodium 100 Mg Capsule) 100 mg PO BID [facility] Last Admin: 09/30/20 20:30 Dose: 100 mg Documented by: Heparin Sodium (Porcine) (Heparin 5,000 Unit/Ml Vial) 5,000 unit SQ Q12 [facility] Last Admin: 09/30/20 20:30 Dose: 5,000 unit Documented by: Potassium Chloride 40 meq/ (Dextrose) 520 mls @ 130 mls/hr IV UD PRN PRN Reason: Potassium < 3 Magnesium Sulfate (Magnesium Sulfate) 2 gm in 50 mls @ 50 mls/hr IV UD PRN PRN Reason: Magnesium </= 1.6 Dextrose/Sodium Chloride (Dextrose 5%-1/2ns Iv Solution) 1,000 mls @ 125 mls/hr IV .Q8H [facility] Last Admin: 10/01/20 03:13 Dose: 125 mls/hr Documented by: Ondansetron HCl (Ondansetron 4 Mg/2 Ml Vial) 4 mg IV Q4HP PRN PRN Reason: Nausea And Vomiting Polyethylene Glycol (Polyethylene Glycol 3350 17 Gm Packet) 17 gm PO DAILYP PRN PRN Reason: Constipation Potassium Chloride (Potassium Chloride 20 Meq Tablet) 40 meq PO UD PRN PRN Reason: Potssium is 3-3.5 Last Admin: 09/30/20 22:57 Dose: 40 meq Documented by: Potassium Chloride (Potassium Chloride 20 Meq Tablet) 40 meq PO UD PRN PRN Reason: Potassium < 3 Senna (Sennosides 1 Tablet) 2 tab PO DAILYP PRN PRN Reason: Constipation Simvastatin (Simvastatin 40 Mg Tablet) 40 mg PO QHS [facility] Last Admin: 09/30/20 20:30 Dose: 40 mg Documented by: Sodium Chloride (0.9 % Sodium Chloride 10 Ml Syringe) 10 ml IV Q8 [facility] Last Admin: 10/01/20 05:17 Dose: 10 ml Documented by: A/P Narrative A/P Narrative: A: *ZOHRA on CKD III: improved *Rhabdomyolysis: 2/[address] *Hypernatremia: 2/2 dehydration, resolved *Leukocytosis: reactive vs infection, afebrile, UA/CXR unremarkable -improving w/o abx *UTI(GNB): *Encephalopathy: 2/2 above, -improving *HTN/HLD: *Chronic LBP: *Generalized weakness/deconditioning/fall: *Transaminitis: improving *Macrocytic anemia: b12/folate ok *Tremors: being w/u outpt, would wean off Seroquel *Pressure wounds P: -IVF -f/u sodium and cpk -hold home ACEI for zohra -consider weaning off seroquel in light of tremors, f/u with PCP, will decrease dose for now -Rocephin pending UC -PT/OT -ppx: Heparin DNR per pt Time Spent With Patient Time: Total time spent is greater than 50% in coordination of care (as documented) at patient's floor/unit and/or counseling patient: QUALITY VTE Deep Vein Thrombosis/Pulmonary Embolism Present on Admission: No
[2020-10-01] MEDS ORDERED: cefTRIAXone 2 GM VIAL ONE (09:00)
[2020-10-01] MEDS ORDERED: cefTRIAXone 2 GM in DEXTROSE 5% IN WATER 50 ML IV SCH (09:00)
[2020-10-01] MEDS: HEPARIN 5,000 UNIT/ML VIAL SQ SCH ×2 (09:03→20:11)
[2020-10-01] MEDS: DEXTROSE 5%-LR 1,000 ML IV SCH ×3 (09:04→18:55)
[2020-10-01] MEDS: DOCUSATE SODIUM 100 MG CAPSULE PO SCH ×2 (09:04→20:11)
[2020-10-01] MEDS: HYDROcodone/APAP 5/325MG TABLET PO PRN (11:15)
[2020-10-01] MEDS: BACLOFEN 10 MG TABLET PO PRN (20:11)
[2020-10-01] MEDS: SIMVASTATIN 40 MG TABLET PO SCH (20:11)
[2020-10-02] MEDS: DEXTROSE 5%-LR 1,000 ML IV SCH ×3 (04:00→14:28)
[2020-10-02] MEDS: 0.9 % SODIUM CHLORIDE 10 ML SYRINGE IV SCH ×3 (05:18→21:00)
[2020-10-02 06:40] LABS: Basophils # (Auto) 0.05 K/mcL (0.00-0.20); Basophils % (Auto) 0.4 % (0.0-2.0); Eosinophils # (Auto) 0.23 K/mcL (0.00-0.70); Eosinophils % (Auto) 2.1 % (0.0-7.0); Hematocrit 28.7 % (41.0-55.0); Lymphocytes # (Auto) 1.11 K/mcL (1.50-4.80); Mean Cell Volume 105.9 fL (80.0-100.0); Mean Corpuscular HGB Conc 31.4 g/dL (31.0-36.0); Mean Platelet Volume 11.4 fL (7.4-10.4); Monocytes # (Auto) 0.71 K/mcL (0.10-0.90); Monocytes % (Auto) 6.4 % (1.0-12.0); Neutrophils % (Auto) 81.1 % (38.0-78.0); Platelet Count 176 K/mcL (140-440); RBC 2.71 M/mcL (4.50-5.90); Red Cell Distribution Width 12.1 % (11.5-14.5); WBC 11.1 K/mcL (4.5-11.0)
[2020-10-02 07:00] LABS: ALT/SGPT 63 U/L (<40); AST/SGOT 52 U/L (<40); Albumin 2.4 gm/dL (3.2-5.2); Albumin/Globulin Ratio 0.9 (1.0-2.3); Alkaline Phosphatase 70 U/L (39-117); Bilirubin,Direct < 0.2 mg/dL (0-0.3); Bilirubin,Total 0.3 mg/dL (0.1-1.0); Blood Urea Nitrogen 60 mg/dL (8-23); Calcium 8.5 mg/dL (8.6-10.4); Carbon Dioxide 25 mmol/L (22-30); Chloride 108 mmol/L (96-108); Globulin 2.8 gm/dL (2.2-3.7); Glomerular Filtration Rate 60; Glucose 138 mg/dL (70-105); Lactate Dehydrogenase 245 U/L (135-225); Triglycerides 86 mg/dL (<150); Uric Acid 10.3 mg/dL (2.5-8.0)
[2020-10-02] MEDS: DOCUSATE SODIUM 100 MG CAPSULE PO SCH ×2 (07:06→20:59)
[2020-10-02] MEDS ORDERED: hydrALAZINE 20 MG/ML VIAL IV PRN (07:51)
[2020-10-02] MEDS ORDERED: LABETALOL 5 MG/ML ML IV PRN (07:51)
--- NOTE | 2020-10-02 07:52 | Internal Med Progress Note ---
SUBJECTIVE Subjective Patient information: Note initiated : 10/02/20 at 7:46 am Service Date, if different from initiated Date: [] Patient: Baldemar Polanco 69 y/o M admitted on 09/29/20 for Fall, Down For Several Days. Chief Complaint: [] Interval history: History of present illness: Mr. Polanco is a 69 year old M Presents to the ED by EMS after the ex-spouse found him lying on the ground covered with feces and urine. She last spoke with him 8 days ago. Looks like he had a primary care visit on the . Had generalized pain including neck pain and came in with a c-collar. Poor historian not able to give much of the history. Sounds like there was a question of some left-sided weakness but Work-up in the ED revealed hyponatremia and acute kidney injury with rhabdomyolysis. Urinalysis pending. 09/30 Feels tired. Looks much better. Mentation much better. Has some left wrist pain. 10/01 Feels better. Chemistry much improved. Renal function improved. 10/02 Continues to feel better. Sodium stable. Renal function much improved. No new pains or complaints. Urine culture with gram-negative bacillus x2 Review of Systems: denies headache/fever/chills/nausea/vomiting/chest or abdominal pain/cough/dyspnea/diarrhea. Otherwise see above. Constitutional Vitals: Vital Signs Temp Pulse Resp BP Pulse Ox 99.9 F H 62 20 155/76 99 10/02/20 04:00 10/02/20 04:00 10/02/20 04:00 10/02/20 04:00 10/02/20 07:13 Period Temp Pulse Resp BP Sys/Nelson Pulse Ox Last 24 Hr 99.3 F-100.6 F 62-90 11-20 109-226/65-214 97-100 Intake and Output 10/01/20 10/02/20 10/02/20 21:59 05:59 13:59 Intake Total 1480 1768 Output Total 1100 1020 160 Balance 380 748 -160 Weight 86.319 kg Intake & Output: Intake & Output 10/01/20 10/02/20 10/02/20 21:59 05:59 13:59 Intake Total 1480 1768 Output Total 1100 1020 160 Balance 380 748 -160 Weight 86.319 kg Intake: IV 1000 908 Dextrose 5%-Lactated Ringers 1, 1000 908 000 ml @ 100 mls/hr IV .Q10H [facility] Rx#:[id number] Oral 480 860 Output: Urine Catheter Amount 1100 1020 160 Other: Meal Dinner Percent of Meal Consumed 0% Urine Appearance Clear Clear Clear Uretheral (Geller) Clear Urine Color Bright Yellow Bright Yellow Bright Yellow Uretheral (Geller) Bright Yellow Stool Size Large Stool Color Black Stool Consistency Loose Loose Exam: General: awake, No acute Distress Eyes/N/T: EOMI, Head/Neck: neck supple, CV: RRR, No murmurs, Pulm: Clear b/l, no wheezing/rhonchi/rales Abd: soft, nontender, +BS x4 Ext: no clubbing/cyanosis/edema Neuro: Awake, mentation much better. Follows commands. Moves extremities. A&O, Skin: warm/dry, pressure wounds to left side of body/face OBJ DATA Labs CBC & Chem 7: 10/02/20 05:01 10/02/20 05:01 Labs: Abnormal Lab Results 10/02/20 10/02/20 10/01/20 05:01 05:01 05:10 WBC 11.1 H RBC 2.71 L Hgb 9.0 L Hct 28.7 L POC Hct MCV 105.9 H MPV 11.4 H Neut % (Auto) 81.1 H Lymph % (Auto) 10.0 L Lymph # (Auto) 1.11 L [place] # (Auto) Seg Neutrophils % Lymphocytes % Absolute Neutrophils 9.04 H RBC Morphology Macrocytosis POC Sodium Sodium POC Chloride Chloride Carbon Dioxide Anion Gap POC BUN BUN 60 H Creatinine POC Creatinine Glucose 138 H POC Glucose Uric Acid 10.3 H Calcium 8.5 L POC WB Ioniz Calcium Phosphorus 2.0 L Magnesium AST 52 H ALT 63 H Lactate Dehydrogenase 245 H Total Creatine Kinase 903 H Total Protein 5.2 L Albumin 2.4 L Globulin Albumin/Globulin Ratio 0.9 L Urine Appearance Urine RBC Urine Bacteria Hyaline Casts Urine Mucus 10/01/20 10/01/20 09/30/20 05:10 05:10 17:56 WBC 12.9 H RBC 2.83 L Hgb 9.5 L Hct 30.2 L POC Hct 28 L MCV 106.7 H MPV 11.5 H Neut % (Auto) 79.0 H Lymph % (Auto) 11.4 L Lymph # (Auto) 1.48 L [place] # (Auto) 0.95 H Seg Neutrophils % Lymphocytes % Absolute Neutrophils 10.21 H RBC Morphology Macrocytosis POC Sodium Sodium POC Chloride Chloride Carbon Dioxide Anion Gap POC BUN > 140 H* BUN 107 H* Creatinine 1.8 H POC Creatinine 2.5 H Glucose 137 H POC Glucose 148 H Uric Acid 13.9 H Calcium 8.4 L POC WB Ioniz Calcium 1.08 L Phosphorus Magnesium 2.8 H AST 61 H ALT 70 H Lactate Dehydrogenase 246 H Total Creatine Kinase Total Protein 5.5 L Albumin 2.7 L Globulin Albumin/Globulin Ratio Urine Appearance Urine RBC Urine Bacteria Hyaline Casts Urine Mucus 09/30/20 09/30/20 09/30/20 12:14 07:40 05:13 WBC RBC Hgb Hct POC Hct 26 L 31 L MCV MPV Neut % (Auto) Lymph % (Auto) Lymph # (Auto) [place] # (Auto) Seg Neutrophils % Lymphocytes % Absolute Neutrophils RBC Morphology Macrocytosis POC Sodium 147 H 149 H Sodium 154 H POC Chloride 110 H Chloride 110 H Carbon Dioxide Anion Gap 17.0 H POC BUN > 140 H* > 140 H* BUN 145 H* Creatinine 2.4 H POC Creatinine 3.0 H 2.9 H Glucose 128 H POC Glucose 187 H 139 H Uric Acid 17.9 H Calcium POC WB Ioniz Calcium 1.10 L 1.07 L Phosphorus 4.6 H Magnesium 3.4 H AST 71 H ALT 88 H Lactate Dehydrogenase 283 H Total Creatine Kinase Total Protein Albumin 2.8 L Globulin Albumin/Globulin Ratio 0.9 L Urine Appearance Urine RBC Urine Bacteria Hyaline Casts Urine Mucus 09/30/20 09/30/20 09/30/20 05:13 05:13 00:01 WBC 12.9 H RBC 3.03 L Hgb 10.0 L Hct 31.7 L POC Hct 28 L MCV 104.6 H MPV 11.4 H Neut % (Auto) 79.9 H Lymph % (Auto) 10.0 L Lymph # (Auto) 1.28 L [place] # (Auto) 1.13 H Seg Neutrophils % Lymphocytes % Absolute Neutrophils 10.29 H RBC Morphology Macrocytosis POC Sodium Sodium POC Chloride Chloride Carbon Dioxide Anion Gap POC BUN 138 H* BUN Creatinine POC Creatinine 2.0 H Glucose POC Glucose 150 H Uric Acid Calcium POC WB Ioniz Calcium 1.12 L Phosphorus Magnesium AST ALT Lactate Dehydrogenase Total Creatine Kinase 1518 H Total Protein Albumin Globulin Albumin/Globulin Ratio Urine Appearance Urine RBC Urine Bacteria Hyaline Casts Urine Mucus 09/29/20 09/29/20 09/29/20 21:09 13:17 13:17 WBC RBC Hgb Hct POC Hct 31 L MCV MPV Neut % (Auto) Lymph % (Auto) Lymph # (Auto) [place] # (Auto) Seg Neutrophils % 89 H Lymphocytes % 5 L Absolute Neutrophils RBC Morphology Abnormal A Macrocytosis 1+ A POC Sodium 150 H Sodium POC Chloride 116 H Chloride Carbon Dioxide Anion Gap POC BUN > 140 H* BUN Creatinine POC Creatinine 3.4 H Glucose POC Glucose 142 H Uric Acid Calcium POC WB Ioniz Calcium 1.08 L Phosphorus Magnesium AST ALT Lactate Dehydrogenase Total Creatine Kinase Total Protein Albumin Globulin Albumin/Globulin Ratio Urine Appearance Hazy A Urine RBC 6 H Urine Bacteria Many A Hyaline Casts Urine Mucus 09/29/20 09/29/20 09/29/20 09:55 09:34 09:33 WBC 18.9 H RBC 4.08 L Hgb Hct POC Hct MCV 102.7 H MPV 11.3 H Neut % (Auto) 85.4 H Lymph % (Auto) 5.2 L Lymph # (Auto) 0.98 L [place] # (Auto) 1.68 H Seg Neutrophils % Lymphocytes % Absolute Neutrophils 16.13 H RBC Morphology Macrocytosis POC Sodium Sodium 149 H POC Chloride Chloride Carbon Dioxide 21 L Anion Gap 24.0 H POC BUN BUN 163 H* Creatinine 3.4 H POC Creatinine Glucose 171 H POC Glucose Uric Acid Calcium POC WB Ioniz Calcium Phosphorus Magnesium AST 104 H ALT 124 H Lactate Dehydrogenase Total Creatine Kinase 2293 H Total Protein Albumin Globulin 3.9 H Albumin/Globulin Ratio 0.9 L Urine Appearance Hazy A Urine RBC 7 H Urine Bacteria Hyaline Casts 14 H Urine Mucus Few A Meds: Medications Acetaminophen (Acetaminophen 325 Mg Tablet) 650 mg PO Q6HP PRN PRN Reason: PAIN/FEVER > 101 Acetaminophen/Codeine Phosphate (Acetaminophen W/Codeine #3 1 Tablet) 1 tab PO Q4-6HP PRN PRN Reason: Pain Last Admin: 09/29/20 22:45 Dose: 1 tab Documented by: Hydrocodone Bitart/Acetaminophen (Hydrocodone/Apap 5/325mg Tablet) 1 tab PO Q4HP PRN PRN Reason: PAIN LEVEL 3-6 Last Admin: 10/01/20 11:15 Dose: 1 tab Documented by: Albuterol/Ipratropium (Ipratropium/Albuterol 3 Ml Ampul.Neb) 3 ml NEB Q4HP PRN PRN Reason: Shortness Of Breath Baclofen (Baclofen 10 Mg Tablet) 10 mg PO BID PRN PRN Reason: spasms Last Admin: 10/01/20 20:11 Dose: 10 mg Documented by: Docusate Sodium (Docusate Sodium 100 Mg Capsule) 100 mg PO BID [facility] Last Admin: 10/02/20 07:06 Dose: Not Given Documented by: Heparin Sodium (Porcine) (Heparin 5,000 Unit/Ml Vial) 5,000 unit SQ Q12 [facility] Last Admin: 10/01/20 20:11 Dose: 5,000 unit Documented by: Potassium Chloride 40 meq/ (Dextrose) 520 mls @ 130 mls/hr IV UD PRN PRN Reason: Potassium < 3 Magnesium Sulfate (Magnesium Sulfate) 2 gm in 50 mls @ 50 mls/hr IV UD PRN PRN Reason: Magnesium </= 1.6 Dextrose/Lactated Ringer's (Dextrose 5%-Lactated Ringers) 1,000 mls @ 100 mls/hr IV .Q10H [facility] Last Admin: 10/02/20 04:00 Dose: 100 mls/hr Documented by: Ceftriaxone Sodium 2 gm/ (Dextrose) 50 mls @ 100 mls/hr IV DAILY [facility]; Protocol Last Infusion: 10/01/20 09:45 Dose: Infused Documented by: Ondansetron HCl (Ondansetron 4 Mg/2 Ml Vial) 4 mg IV Q4HP PRN PRN Reason: Nausea And Vomiting Polyethylene Glycol (Polyethylene Glycol 3350 17 Gm Packet) 17 gm PO DAILYP PRN PRN Reason: Constipation Potassium Chloride (Potassium Chloride 20 Meq Tablet) 40 meq PO UD PRN PRN Reason: Potssium is 3-3.5 Last Admin: 09/30/20 22:57 Dose: 40 meq Documented by: Potassium Chloride (Potassium Chloride 20 Meq Tablet) 40 meq PO UD PRN PRN Reason: Potassium < 3 Senna (Sennosides 1 Tablet) 2 tab PO DAILYP PRN PRN Reason: Constipation Simvastatin (Simvastatin 40 Mg Tablet) 40 mg PO QHS [facility] Last Admin: 10/01/20 20:11 Dose: 40 mg Documented by: Sodium Chloride (0.9 % Sodium Chloride 10 Ml Syringe) 10 ml IV Q8 [facility] Last Admin: 10/02/20 05:18 Dose: 10 ml Documented by: A/P Narrative A/P Narrative: A: *ZOHRA on CKD III: improved *Rhabdomyolysis: 2/[address] time on [address] *Hypernatremia: 2/2 dehydration, resolved *UTI(GNB): leukocytosis improving *Encephalopathy: 2/2 above, -resolve *HTN/HLD: *Chronic LBP: *Generalized weakness/deconditioning/fall: *Transaminitis: improving *Macrocytic anemia: b12/folate ok *Tremors: being w/u outpt, would recommmend wean off Seroquel *Pressure wounds P: -IVF's -f/u cpk -hold home ACEI for zohra -consider weaning off seroquel in light of tremors, f/u with PCP, will decrease dose for now -Rocephin pending UC -wound care -PT/OT -CM for placement -ppx: Heparin DNR per pt Time Spent With Patient Time: Total time spent is greater than 50% in coordination of care (as documented) at patient's floor/unit and/or counseling patient: QUALITY VTE Deep Vein Thrombosis/Pulmonary Embolism Present on Admission: No
[2020-10-02] MEDS: HEPARIN 5,000 UNIT/ML VIAL SQ SCH ×2 (08:34→21:00)
[2020-10-02] MEDS: BACLOFEN 10 MG TABLET PO PRN ×2 (08:35→16:16)
[2020-10-02] MEDS: cefTRIAXone 1 GM VIAL IV SCH (08:35)
[2020-10-02] MEDS: HYDROcodone/APAP 5/325MG TABLET PO PRN ×2 (08:35→13:57)
[2020-10-02] MEDS: PHOSPHORUS 250 MG TABLET PO SCH ×4 (08:38→20:59)
[2020-10-02] MEDS ORDERED: cefTRIAXone 1 GM in DEXTROSE 5% IN WATER 50 ML IV SCH (09:00)
[2020-10-02] MEDS: SIMVASTATIN 40 MG TABLET PO SCH (21:00)
[2020-10-02] MEDS ORDERED: QUEtiapine 25 MG TABLET PO SCH (21:00)
[2020-10-03] MEDS: DEXTROSE 5%-LR 1,000 ML IV SCH ×3 (02:39→16:14)
[2020-10-03] MEDS: 0.9 % SODIUM CHLORIDE 10 ML SYRINGE IV SCH ×3 (05:11→20:51)
[2020-10-03 06:38] LABS: Basophils # (Auto) 0.02 K/mcL (0.00-0.20); Basophils % (Auto) 0.2 % (0.0-2.0); Eosinophils # (Auto) 0.25 K/mcL (0.00-0.70); Eosinophils % (Auto) 2.7 % (0.0-7.0); Hematocrit 24.1 % (41.0-55.0); Hemoglobin 7.6 g/dL (13.5-16.5); Lymphocytes # (Auto) 1.12 K/mcL (1.50-4.80); Mean Cell Volume 106.2 fL (80.0-100.0); Mean Corpuscular HGB Conc 31.5 g/dL (31.0-36.0); Mean Platelet Volume 11.5 fL (7.4-10.4); Monocytes % (Auto) 7.5 % (1.0-12.0); Neutrophils % (Auto) 77.6 % (38.0-78.0); Platelet Count 174 K/mcL (140-440); RBC 2.27 M/mcL (4.50-5.90); Red Cell Distribution Width 12.1 % (11.5-14.5); WBC 9.4 K/mcL (4.5-11.0)
[2020-10-03 06:57] LABS: ALT/SGPT 55 U/L (<40); AST/SGOT 39 U/L (<40); Albumin 2.2 gm/dL (3.2-5.2); Albumin/Globulin Ratio 0.8 (1.0-2.3); Alkaline Phosphatase 65 U/L (39-117); Bilirubin,Direct < 0.2 mg/dL (0-0.3); Bilirubin,Total 0.3 mg/dL (0.1-1.0); Blood Urea Nitrogen 36 mg/dL (8-23); Calcium 8.2 mg/dL (8.6-10.4); Carbon Dioxide 25 mmol/L (22-30); Chloride 106 mmol/L (96-108); Globulin 2.6 gm/dL (2.2-3.7); Glomerular Filtration Rate 67; Glucose 119 mg/dL (70-105); Lactate Dehydrogenase 229 U/L (135-225); Phosphorous 2.8 mg/dL (2.5-4.5); Triglycerides 96 mg/dL (<150); Uric Acid 8.4 mg/dL (2.5-8.0)
[2020-10-03] MEDS: BACLOFEN 10 MG TABLET PO PRN (07:39)
[2020-10-03] MEDS: HYDROcodone/APAP 5/325MG TABLET PO PRN (07:40)
[2020-10-03] MEDS: DOCUSATE SODIUM 100 MG CAPSULE PO SCH ×2 (07:41→20:51)
[2020-10-03] MEDS: HEPARIN 5,000 UNIT/ML VIAL SQ SCH ×2 (07:41→20:51)
[2020-10-03] MEDS: cefTRIAXone 1 GM VIAL IV SCH (07:41)
[2020-10-03] MEDS ORDERED: IPRATROPIUM/ALBUTEROL 3 ML AMPUL.NEB NEB PRN (12:01)
[2020-10-03] MEDS ORDERED: POTASSIUM CHLORIDE 20 MEQ TABLET PO PRN ×2 (12:01)
[2020-10-03] MEDS ORDERED: POTASSIUM CHLORIDE 40 MEQ in DEXTROSE 5% IN WATER 500 ML IV PRN (12:01)
[2020-10-03] MEDS ORDERED: SENNOSIDES 1 TABLET PO PRN (12:01)
[2020-10-03] MEDS ORDERED: POLYETHYLENE GLYCOL 3350 17 GM PACKET PO PRN (12:01)
[2020-10-03] MEDS ORDERED: MAGNESIUM SULFATE 2 GM/50 ML BAG IV PRN (12:01)
[2020-10-03] MEDS ORDERED: BACLOFEN 10 MG TABLET PO PRN (12:01)
[2020-10-03] MEDS ORDERED: LABETALOL 5 MG/ML ML IV PRN (12:01)
[2020-10-03] MEDS ORDERED: hydrALAZINE 20 MG/ML VIAL IV PRN (12:01)
[2020-10-03] MEDS ORDERED: ACETAMINOPHEN W/CODEINE #3 1 TABLET PO PRN (12:01)
[2020-10-03] MEDS ORDERED: ONDANSETRON 4 MG/2 ML VIAL IV PRN (12:01)
--- NOTE | 2020-10-03 12:12 | Internal Med Progress Note ---
SUBJECTIVE Subjective Patient information: Note initiated : 10/03/20 at 11:54 am Service Date, if different from initiated Date: [] Patient: Baldemar Polanco 69 y/o M admitted on 09/29/20 for Fall, Down For Several Days. Chief Complaint: [rhabdomyolysis] Interval history: History of present illness: Mr. Polanco is a 69 year old M Presents to the ED by EMS after the ex-spouse found him lying on the ground covered with feces and urine. She last spoke with him 8 days ago. Looks like he had a primary care visit on the . Had generalized pain including neck pain and came in with a c-collar. Poor historian not able to give much of the history. Sounds like there was a question of some left-sided weakness but Work-up in the ED revealed hyponatremia and acute kidney injury with rhabdomyolysis. Urinalysis pending. 09/30 Feels tired. Looks much better. Mentation much better. Has some left wrist pain. 10/01 Feels better. Chemistry much improved. Renal function improved. 10/02 Continues to feel better. Sodium stable. Renal function much improved. No new pains or complaints. Urine culture with gram-negative bacillus x2 10/03: Serum CK down to 245 from 903 the day before. Low grade fever with Tmax 37.8 overnight. Poor appetite, did not eat much food or drink. General body weakness. Denies any pain. Constitutional Vitals: Vital Signs Temp Pulse Resp BP Pulse Ox 37.8 C H 64 13 144/81 100 10/03/20 08:01 10/03/20 08:01 10/03/20 08:01 10/03/20 08:01 10/03/20 08:01 Period Temp Pulse Resp BP Sys/Nelson Pulse Ox Last 24 Hr 37.6 C-37.9 C 60-80 10-16 91-164/53-85 96-100 Intake and Output 10/02/20 10/03/20 10/03/20 21:59 05:59 13:59 Intake Total 1460 1474 300 Output Total 515 594 294 Balance 945 880 6 Weight 89.584 kg Intake & Output: Intake & Output 10/02/20 10/03/20 10/03/20 21:59 05:59 13:59 Intake Total 1460 1474 300 Output Total 515 594 294 Balance 945 880 6 Weight 89.584 kg Intake: IV 1000 914 Dextrose 5%-Lactated Ringers 1, 1000 914 000 ml @ 75 mls/hr IV .[id number] [facility] Rx#:[id number] Oral 460 560 300 Output: Urine Catheter Amount 515 544 294 Void Amount 50 Other: Meal Breakfast Percent of Meal Consumed 50% Urine Appearance Clear Clear Uretheral (Geller) Clear Urine Color Bright Yellow Bright Yellow Bright Yellow Uretheral (Geller) Bright Yellow Urine Odor Normal Stool Size Small Moderate Stool Color Brown Blood Tinged Stool Consistency Loose General appearance: cooperative and no acute distress Head Head exam: Present atraumatic and normocephalic Eye Eye exam: Present EOMI and PERRL ENT ENT exam: Present mucous membranes moist, normal exam and normal external ear exam Additional comments: Bruise on left face Neck Neck exam: Present normal inspection; Absent lymphadenopathy, tenderness and thyromegaly Respiratory Respiratory exam: Absent accessory muscle use, respiratory distress and wheezes Cardiovascular Cardiovascular exam: Present normal rate and rhythm; Absent JVD GI/Abdominal GI/Abdominal exam: Present normal bowel sounds and soft; Absent organomegaly and tenderness Rectal Rectal exam: Present deferred Extremities Exam Extremities exam: Present full ROM, normal capillary refill and normal inspection; Absent tenderness Neurological Exam Neurological exam: Present alert, CN II-XII intact and oriented X3; Absent motor sensory deficit Psychiatric Psychiatric exam: Present normal affect and normal mood; Absent anxious and depressed Skin Skin exam: Present dry and intact OBJ DATA Labs CBC & Chem 7: 10/03/20 04:57 10/03/20 04:57 Labs: Abnormal Lab Results 10/03/20 10/03/20 10/03/20 04:57 04:57 04:57 WBC RBC 2.27 L Hgb 7.6 L Hct 24.1 L POC Hct MCV 106.2 H MPV 11.5 H Neut % (Auto) Lymph % (Auto) 12.0 L Lymph # (Auto) 1.12 L [place] # (Auto) Absolute Neutrophils POC Sodium POC BUN BUN 36 H Creatinine POC Creatinine Glucose 119 H POC Glucose Uric Acid 8.4 H Calcium 8.2 L POC WB Ioniz Calcium Phosphorus Magnesium AST ALT 55 H Lactate Dehydrogenase 229 H Total Creatine Kinase 245 H Total Protein 4.8 L Albumin 2.2 L Albumin/Globulin Ratio 0.8 L 0510/02/20 10/01/20 05:01 05:01 05:10 WBC 11.1 H RBC 2.71 L Hgb 9.0 L Hct 28.7 L POC Hct MCV 105.9 H MPV 11.4 H Neut % (Auto) 81.1 H Lymph % (Auto) 10.0 L Lymph # (Auto) 1.11 L [place] # (Auto) Absolute Neutrophils 9.04 H POC Sodium POC BUN BUN 60 H Creatinine POC Creatinine Glucose 138 H POC Glucose Uric Acid 10.3 H Calcium 8.5 L POC WB Ioniz Calcium Phosphorus 2.0 L Magnesium AST 52 H ALT 63 H Lactate Dehydrogenase 245 H Total Creatine Kinase 903 H Total Protein 5.2 L Albumin 2.4 L Albumin/Globulin Ratio 0.9 L 10/01/20 10/01/20 09/30/20 05:10 05:10 17:56 WBC 12.9 H RBC 2.83 L Hgb 9.5 L Hct 30.2 L POC Hct 28 L MCV 106.7 H MPV 11.5 H Neut % (Auto) 79.0 H Lymph % (Auto) 11.4 L Lymph # (Auto) 1.48 L [place] # (Auto) 0.95 H Absolute Neutrophils 10.21 H POC Sodium POC BUN > 140 H* BUN 107 H* Creatinine 1.8 H POC Creatinine 2.5 H Glucose 137 H POC Glucose 148 H Uric Acid 13.9 H Calcium 8.4 L POC WB Ioniz Calcium 1.08 L Phosphorus Magnesium 2.8 H AST 61 H ALT 70 H Lactate Dehydrogenase 246 H Total Creatine Kinase Total Protein 5.5 L Albumin 2.7 L Albumin/Globulin Ratio 09/30/20 09/30/20 12:14 00:01 WBC RBC Hgb Hct POC Hct 26 L 28 L MCV MPV Neut % (Auto) Lymph % (Auto) Lymph # (Auto) [place] # (Auto) Absolute Neutrophils POC Sodium 147 H POC BUN > 140 H* 138 H* BUN Creatinine POC Creatinine 3.0 H 2.0 H Glucose POC Glucose 187 H 150 H Uric Acid Calcium POC WB Ioniz Calcium 1.10 L 1.12 L Phosphorus Magnesium AST ALT Lactate Dehydrogenase Total Creatine Kinase Total Protein Albumin Albumin/Globulin Ratio Meds: Medications Acetaminophen (Acetaminophen 325 Mg Tablet) 650 mg PO Q6HP PRN PRN Reason: PAIN/FEVER > 101 Acetaminophen/Codeine Phosphate (Acetaminophen W/Codeine #3 1 Tablet) 1 tab PO Q4-6HP PRN PRN Reason: Pain Last Admin: 09/29/20 22:45 Dose: 1 tab Documented by: Hydrocodone Bitart/Acetaminophen (Hydrocodone/Apap 5/325mg Tablet) 1 tab PO Q4HP PRN PRN Reason: PAIN LEVEL 3-6 Last Admin: 10/03/20 07:40 Dose: 1 tab Documented by: Albuterol/Ipratropium (Ipratropium/Albuterol 3 Ml Ampul.Neb) 3 ml NEB Q4HP PRN PRN Reason: Shortness Of Breath Baclofen (Baclofen 10 Mg Tablet) 10 mg PO BID PRN PRN Reason: spasms Last Admin: 10/03/20 07:39 Dose: 10 mg Documented by: Ceftriaxone Sodium (Ceftriaxone 1 Gm Vial) 1 gm IV DAILY [facility] Last Admin: 10/03/20 07:41 Dose: 1 gm Documented by: Docusate Sodium (Docusate Sodium 100 Mg Capsule) 100 mg PO BID [facility] Last Admin: 10/03/20 07:41 Dose: Not Given Documented by: Heparin Sodium (Porcine) (Heparin 5,000 Unit/Ml Vial) 5,000 unit SQ Q12 [facility] Last Admin: 10/03/20 07:41 Dose: 5,000 unit Documented by: Hydralazine HCl (Hydralazine 20 Mg/Ml Vial) 0 mg IV Q2HP PRN PRN Reason: Hypertension Potassium Chloride 40 meq/ (Dextrose) 520 mls @ 130 mls/hr IV UD PRN PRN Reason: Potassium < 3 Magnesium Sulfate (Magnesium Sulfate) 2 gm in 50 mls @ 50 mls/hr IV UD PRN PRN Reason: Magnesium </= 1.6 Dextrose/Lactated Ringer's (Dextrose 5%-Lactated Ringers) 1,000 mls @ 75 mls/hr IV .[id number] [facility] Last Admin: 10/03/20 02:39 Dose: 75 mls/hr Documented by: Labetalol HCl (Labetalol 5 Mg/Ml Ml) 0 mg IV Q2HP PRN PRN Reason: Hypertension Ondansetron HCl (Ondansetron 4 Mg/2 Ml Vial) 4 mg IV Q4HP PRN PRN Reason: Nausea And Vomiting Polyethylene Glycol (Polyethylene Glycol 3350 17 Gm Packet) 17 gm PO DAILYP PRN PRN Reason: Constipation Potassium Chloride (Potassium Chloride 20 Meq Tablet) 40 meq PO UD PRN PRN Reason: Potssium is 3-3.5 Last Admin: 09/30/20 22:57 Dose: 40 meq Documented by: Potassium Chloride (Potassium Chloride 20 Meq Tablet) 40 meq PO UD PRN PRN Reason: Potassium < 3 Quetiapine Fumarate (Quetiapine 25 Mg Tablet) 25 mg PO HS [facility] Last Admin: 10/02/20 21:00 Dose: 25 mg Documented by: Senna (Sennosides 1 Tablet) 2 tab PO DAILYP PRN PRN Reason: Constipation Simvastatin (Simvastatin 40 Mg Tablet) 40 mg PO QHS [facility] Last Admin: 10/02/20 21:00 Dose: 40 mg Documented by: Sodium Chloride (0.9 % Sodium Chloride 10 Ml Syringe) 10 ml IV Q8 [facility] Last Admin: 10/03/20 05:11 Dose: 10 ml Documented by: A/P Assessment and plan (1) Rhabdomyolysis: Status: Acute (2) Acute renal failure: Status: Acute (3) Weakness: Status: Acute (4) Acute dehydration: Status: Acute (5) UTI (urinary tract infection): Status: Acute (6) Anemia, macrocytic: Status: Acute Narrative A/P Narrative: 1. Rhabdomyolysis: Okay to transfer to inpatient med surg and d/c telemetry Continue D5LR@75cc/hr. Consider saline lock when patient is eating and drinking significant amount Encourage patient to increase his oral food and drink intake to stay hydrated Daily serum CK level PT OT evaluation and treatment for placement planning 2. Dehydration: Continue D5LR@75cc/hr Encourage patient to increase his oral food and drink intake to stay hydrated Daily CMP to trend BUN/Cr ratio to make sure degree of dehydration is improving 3. Macrocytic anemia: Iron panel Folate and vitamin B12 level Daily cbc w/ auto diff to trend H/H and transfuse pRBC if hemoglobin <7.0, active bleeding, or symptomatic 4. UTI: Urine cultures grew K pneumoniae Currently on Rocephin. Will continue while in house, and convert to oral antibiotics such as Levaquin at time of discharge 5. Acute kidney injury and hypernatremia: Resolved. Continue IV D5LR at the time being. Consider saline lock when patient is eating and drinking significant amount GI ppx: not currently indicated DVT ppx: Heparin Code status: DNI DNR Prognosis: stable Disposition: transfer to inpatient med surg; PT OT evaluation and treatment for placement planning Time Spent With Patient Time: Total time spent is greater than 50% in coordination of care (as documented) at patient's floor/unit and/or counseling patient: Total time spent with greater than 50% in coordination of care (as documented) at patient's floor/unit and/or counseling patient:: 25 - 35 minutes QUALITY VTE Deep Vein Thrombosis/Pulmonary Embolism Present on Admission: No
[2020-10-03] MEDS: QUEtiapine 25 MG TABLET PO SCH (20:51)
[2020-10-03] MEDS: SIMVASTATIN 40 MG TABLET PO SCH (20:51)
[2020-10-04] MEDS: DEXTROSE 5%-LR 1,000 ML IV SCH ×2 (05:41→13:53)
[2020-10-04] MEDS: 0.9 % SODIUM CHLORIDE 10 ML SYRINGE IV SCH ×3 (05:42→20:44)
[2020-10-04] MEDS: DOCUSATE SODIUM 100 MG CAPSULE PO SCH ×2 (07:36→20:44)
[2020-10-04] MEDS: cefTRIAXone 1 GM VIAL IV SCH (07:36)
[2020-10-04] MEDS: HEPARIN 5,000 UNIT/ML VIAL SQ SCH (07:36)
[2020-10-04 09:59] LABS: Basophils # (Auto) 0.03 K/mcL (0.00-0.20); Basophils % (Auto) 0.3 % (0.0-2.0); Eosinophils # (Auto) 0.25 K/mcL (0.00-0.70); Eosinophils % (Auto) 2.5 % (0.0-7.0); Hematocrit 26.4 % (41.0-55.0); Hemoglobin 8.2 g/dL (13.5-16.5); Lymphocytes # (Auto) 1.05 K/mcL (1.50-4.80); Lymphocytes % (Auto) 10.4 % (15.0-49.0); Mean Cell Volume 107.3 fL (80.0-100.0); Mean Corpuscular HGB Conc 31.1 g/dL (31.0-36.0); Mean Platelet Volume 11.6 fL (7.4-10.4); Monocytes # (Auto) 0.65 K/mcL (0.10-0.90); Monocytes % (Auto) 6.4 % (1.0-12.0); Neutrophils % (Auto) 80.4 % (38.0-78.0); Platelet Count 195 K/mcL (140-440); RBC 2.46 M/mcL (4.50-5.90); Red Cell Distribution Width 12.1 % (11.5-14.5); WBC 10.1 K/mcL (4.5-11.0)
[2020-10-04 10:37] LABS: ALT/SGPT 62 U/L (<40); AST/SGOT 50 U/L (<40); Albumin 1.9 gm/dL (3.2-5.2); Albumin/Globulin Ratio 0.6 (1.0-2.3); Alkaline Phosphatase 77 U/L (39-117); Bilirubin,Total 0.2 mg/dL (0.1-1.0); Blood Urea Nitrogen 24 mg/dL (8-23); Calcium 8.4 mg/dL (8.6-10.4); Carbon Dioxide 23 mmol/L (22-30); Chloride 110 mmol/L (96-108); Globulin 3.1 gm/dL (2.2-3.7); Glomerular Filtration Rate 67; Glucose 116 mg/dL (70-105)
--- NOTE | 2020-10-04 15:06 | Internal Med Progress Note ---
SUBJECTIVE Subjective Patient information: Note initiated : 10/04/20 at 3:02 pm Service Date, if different from initiated Date: [] Patient: Baldemar Polanco 69 y/o M admitted on 09/29/20 for Fall, Down For Several Days. Chief Complaint: [] Interval history: History of present illness: Mr. Polanco is a 69 year old M Presents to the ED by EMS after the ex-spouse found him lying on the ground covered with feces and urine. She last spoke with him 8 days ago. Looks like he had a primary care visit on the . Had generalized pain including neck pain and came in with a c-collar. Poor historian not able to give much of the history. Sounds like there was a question of some left-sided weakness but Work-up in the ED revealed hyponatremia and acute kidney injury with rhabdomyolysis. Urinalysis pending. 09/30 Feels tired. Looks much better. Mentation much better. Has some left wrist pain. 10/01 Feels better. Chemistry much improved. Renal function improved. 10/02 Continues to feel better. Sodium stable. Renal function much improved. No new pains or complaints. Urine culture with gram-negative bacillus x2 10/04: Continues to feel better. Serum CK continue to down trend now 160. Serum Cr level 1.1. Fever with Tmax 38.1 earlier this morning. Denies any muscle cramps or weakness. Denies any pain. Good appetite. Denies dysuria. Fever with Tmax 38.1 earlier this morning. Review of Systems: denies headache/fever/chills/nausea/vomiting/chest or abdominal pain/cough/dyspnea/diarrhea. Otherwise see above. Constitutional Vitals: Vital Signs Temp Pulse Resp BP Pulse Ox 37.2 C 88 20 138/86 99 10/04/20 12:00 10/04/20 12:00 10/04/20 12:00 10/04/20 12:00 10/04/20 12:00 Period Temp Pulse Resp BP Sys/Nelson Pulse Ox Last 24 Hr 37.0 C-38.1 C 75-88 20-20 102-148/50-86 96-100 Intake and Output 10/04/20 10/04/20 10/04/20 05:59 13:59 21:59 Intake Total 1100 Output Total 725 Balance 375 Intake & Output: Intake & Output 10/04/20 10/04/20 10/04/20 05:59 13:59 21:59 Intake Total 1100 Output Total 725 Balance 375 Intake: IV 1000 Dextrose 5%-Lactated Ringers 1, 1000 000 ml @ 75 mls/hr IV .[id number] [facility] Rx#:[id number] Oral 100 Output: Urine Catheter Amount 725 Other: Urine Appearance Clear Urine Color Dark Yellow Exam: General: awake, No acute Distress Eyes/N/T: EOMI, Head/Neck: neck supple, CV: RRR, No murmurs, Pulm: Clear b/l, no wheezing/rhonchi/rales Abd: soft, nontender, +BS x4 Ext: no clubbing/cyanosis/edema Neuro: Awake, mentation much better. Follows commands. Moves extremities. A&O, Skin: warm/dry, pressure wounds to left side of body/face OBJ DATA Labs CBC & Chem 7: 10/04/20 05:40 10/04/20 05:40 Labs: Abnormal Lab Results 10/04/20 10/04/20 10/03/20 05:40 05:40 04:57 WBC RBC 2.46 L Hgb 8.2 L Hct 26.4 L MCV 107.3 H MPV 11.6 H Neut % (Auto) 80.4 H Lymph % (Auto) 10.4 L Lymph # (Auto) 1.05 L Absolute Neutrophils 8.12 H Chloride 110 H BUN 24 H Glucose 116 H Uric Acid Calcium 8.4 L Phosphorus AST 50 H ALT 62 H Lactate Dehydrogenase Total Creatine Kinase 245 H Total Protein 5.0 L Albumin 1.9 L Albumin/Globulin Ratio 0.6 L 10/03/20 10/03/20 10/02/20 04:57 04:57 05:01 WBC RBC 2.27 L Hgb 7.6 L Hct 24.1 L MCV 106.2 H MPV 11.5 H Neut % (Auto) Lymph % (Auto) 12.0 L Lymph # (Auto) 1.12 L Absolute Neutrophils Chloride BUN 36 H 60 H Glucose 119 H 138 H Uric Acid 8.4 H 10.3 H Calcium 8.2 L 8.5 L Phosphorus 2.0 L AST 52 H ALT 55 H 63 H Lactate Dehydrogenase 229 H 245 H Total Creatine Kinase Total Protein 4.8 L 5.2 L Albumin 2.2 L 2.4 L Albumin/Globulin Ratio 0.8 L 0.9 L 10/02/20 05:01 WBC 11.1 H RBC 2.71 L Hgb 9.0 L Hct 28.7 L MCV 105.9 H MPV 11.4 H Neut % (Auto) 81.1 H Lymph % (Auto) 10.0 L Lymph # (Auto) 1.11 L Absolute Neutrophils 9.04 H Chloride BUN Glucose Uric Acid Calcium Phosphorus AST ALT Lactate Dehydrogenase Total Creatine Kinase Total Protein Albumin Albumin/Globulin Ratio Meds: Medications Acetaminophen (Acetaminophen 325 Mg Tablet) 650 mg PO Q6HP PRN PRN Reason: PAIN/FEVER > 101 Acetaminophen/Codeine Phosphate (Acetaminophen W/Codeine #3 1 Tablet) 1 tab PO Q4-6HP PRN PRN Reason: Pain Last Admin: 10/04/20 04:19 Dose: 1 tab Documented by: Hydrocodone Bitart/Acetaminophen (Hydrocodone/Apap 5/325mg Tablet) 1 tab PO Q4HP PRN PRN Reason: PAIN LEVEL 3-6 Albuterol/Ipratropium (Ipratropium/Albuterol 3 Ml Ampul.Neb) 3 ml NEB Q4HP PRN PRN Reason: Shortness Of Breath Baclofen (Baclofen 10 Mg Tablet) 10 mg PO BIDP PRN PRN Reason: spasms Ceftriaxone Sodium (Ceftriaxone 1 Gm Vial) 1 gm IV DAILY [facility] Last Admin: 10/04/20 07:36 Dose: 1 gm Documented by: Docusate Sodium (Docusate Sodium 100 Mg Capsule) 100 mg PO BID [facility] Last Admin: 10/04/20 07:36 Dose: Not Given Documented by: Heparin Sodium (Porcine) (Heparin 5,000 Unit/Ml Vial) 5,000 unit SQ Q12 [facility] Last Admin: 10/04/20 07:36 Dose: 5,000 unit Documented by: Hydralazine HCl (Hydralazine 20 Mg/Ml Vial) 0 mg IV Q2HP PRN PRN Reason: Hypertension Dextrose/Lactated Ringer's (Dextrose 5%-Lactated Ringers) 1,000 mls @ 75 mls/hr IV .[id number] [facility] Last Admin: 10/04/20 13:53 Dose: Not Given Documented by: Magnesium Sulfate (Magnesium Sulfate) 2 gm in 50 mls @ 50 mls/hr IV UD PRN PRN Reason: Magnesium </= 1.6 Potassium Chloride 40 meq/ (Dextrose) 520 mls @ 130 mls/hr IV UD PRN PRN Reason: Potassium < 3 Labetalol HCl (Labetalol 5 Mg/Ml Ml) 0 mg IV Q2HP PRN PRN Reason: Hypertension Ondansetron HCl (Ondansetron 4 Mg/2 Ml Vial) 4 mg IV Q4HP PRN PRN Reason: Nausea And Vomiting Polyethylene Glycol (Polyethylene Glycol 3350 17 Gm Packet) 17 gm PO DAILYP PRN PRN Reason: Constipation Potassium Chloride (Potassium Chloride 20 Meq Tablet) 40 meq PO UD PRN PRN Reason: Potssium is 3-3.5 Potassium Chloride (Potassium Chloride 20 Meq Tablet) 40 meq PO UD PRN PRN Reason: Potassium < 3 Quetiapine Fumarate (Quetiapine 25 Mg Tablet) 25 mg PO HS [facility] Last Admin: 10/03/20 20:51 Dose: 25 mg Documented by: Senna (Sennosides 1 Tablet) 2 tab PO DAILYP PRN PRN Reason: Constipation Simvastatin (Simvastatin 40 Mg Tablet) 40 mg PO QHS [facility] Last Admin: 10/03/20 20:51 Dose: 40 mg Documented by: Sodium Chloride (0.9 % Sodium Chloride 10 Ml Syringe) 10 ml IV Q8 [facility] Last Admin: 10/04/20 13:52 Dose: 10 ml Documented by: A/P Assessment and plan (1) Rhabdomyolysis: Status: Acute (2) Acute renal failure: Status: Acute (3) Weakness: Status: Acute (4) Acute dehydration: Status: Acute (5) UTI (urinary tract infection): Status: Acute (6) Anemia, macrocytic: Status: Acute Narrative A/P Narrative: 1. Rhabdomyolysis: Saline lock Encourage patient to increase his oral food and drink intake to stay hydrated Daily serum CK level PT OT evaluation and treatment for placement planning 2. Dehydration: Saline lock Encourage patient to increase his oral food and drink intake to stay hydrated Daily CMP to trend BUN/Cr ratio to make sure degree of dehydration is improving 3. Macrocytic anemia: Iron panel Folate and vitamin B12 level Daily cbc w/ auto diff to trend H/H and transfuse pRBC if hemoglobin <7.0, active bleeding, or symptomatic 4. UTI: Urine cultures grew K pneumoniae Currently on Rocephin. Will continue while in house, and convert to oral antibiotics such as Levaquin at time of discharge 5. Acute kidney injury and hypernatremia: Resolved. Saline lock GI ppx: not currently indicated DVT ppx: Lovenox Code status: DNI DNR Prognosis: stable Disposition: transfer to inpatient med surg; PT OT evaluation and treatment for placement planning Time Spent With Patient Time: Total time spent is greater than 50% in coordination of care (as documented) at patient's floor/unit and/or counseling patient: QUALITY VTE Deep Vein Thrombosis/Pulmonary Embolism Present on Admission: No
[2020-10-04] MEDS: HYDROcodone/APAP 5/325MG TABLET PO PRN (15:54)
[2020-10-04] MEDS: QUEtiapine 25 MG TABLET PO SCH (20:44)
[2020-10-04] MEDS: SIMVASTATIN 40 MG TABLET PO SCH (20:44)
[2020-10-05] MEDS: 0.9 % SODIUM CHLORIDE 10 ML SYRINGE IV SCH ×3 (05:38→21:34)
[2020-10-05 07:02] LABS: Basophils # (Auto) 0.02 K/mcL (0.00-0.20); Basophils % (Auto) 0.2 % (0.0-2.0); Eosinophils # (Auto) 0.22 K/mcL (0.00-0.70); Eosinophils % (Auto) 2.2 % (0.0-7.0); Hematocrit 23.8 % (41.0-55.0); Hemoglobin 7.7 g/dL (13.5-16.5); Lymphocytes # (Auto) 1.11 K/mcL (1.50-4.80); Lymphocytes % (Auto) 10.9 % (15.0-49.0); Mean Cell Volume 102.1 fL (80.0-100.0); Mean Corpuscular HGB Conc 32.4 g/dL (31.0-36.0); Mean Platelet Volume 11.3 fL (7.4-10.4); Monocytes # (Auto) 0.74 K/mcL (0.10-0.90); Monocytes % (Auto) 7.3 % (1.0-12.0); Neutrophils % (Auto) 79.4 % (38.0-78.0); Platelet Count 199 K/mcL (140-440); RBC 2.33 M/mcL (4.50-5.90); WBC 10.2 K/mcL (4.5-11.0)
[2020-10-05 07:59] LABS: ALT/SGPT 57 U/L (<40); AST/SGOT 42 U/L (<40); Albumin 2.2 gm/dL (3.2-5.2); Albumin/Globulin Ratio 0.8 (1.0-2.3); Alkaline Phosphatase 62 U/L (39-117); Bilirubin,Total 0.3 mg/dL (0.1-1.0); Blood Urea Nitrogen 20 mg/dL (8-23); Calcium 8.2 mg/dL (8.6-10.4); Carbon Dioxide 23 mmol/L (22-30); Chloride 105 mmol/L (96-108); Globulin 2.7 gm/dL (2.2-3.7); Glomerular Filtration Rate 75; Glucose 101 mg/dL (70-105)
[2020-10-05] MEDS: DOCUSATE SODIUM 100 MG CAPSULE PO SCH ×2 (08:17→21:34)
[2020-10-05] MEDS: cefTRIAXone 1 GM VIAL IV SCH (08:17)
[2020-10-05] MEDS: ENOXAPARIN 40 MG/0.4 ML SYRINGE SQ SCH (08:17)
--- NOTE | 2020-10-05 14:46 | Internal Med Progress Note ---
SUBJECTIVE Subjective Patient information: Note initiated : 10/05/20 at 2:44 pm Service Date, if different from initiated Date: [] Patient: Baldemar Polanco 69 y/o M admitted on 09/29/20 for Fall, Down For Several Days. Chief Complaint: [] Interval history: History of present illness: Mr. Polanco is a 69 year old M Presents to the ED by EMS after the ex-spouse found him lying on the ground covered with feces and urine. She last spoke with him 8 days ago. Looks like he had a primary care visit on the . Had generalized pain including neck pain and came in with a c-collar. Poor historian not able to give much of the history. Sounds like there was a question of some left-sided weakness but Work-up in the ED revealed hyponatremia and acute kidney injury with rhabdomyolysis. Urinalysis pending. 09/30 Feels tired. Looks much better. Mentation much better. Has some left wrist pain. 10/01 Feels better. Chemistry much improved. Renal function improved. 10/02 Continues to feel better. Sodium stable. Renal function much improved. No new pains or complaints. Urine culture with gram-negative bacillus x2 10/04: Continues to feel better. Serum CK continue to down trend now 160. Serum Cr level 1.1. Fever with Tmax 38.1 earlier this morning. Denies any muscle cramps or weakness. Denies any pain. Good appetite. Denies dysuria. Fever with Tmax 38.1 earlier this morning. 10/05: Serum CK continue to down trend now 109. Serum level 1.0. Fever with Tmax 38.1 overnight. c/o left forearm muscle cramps. Review of Systems: denies headache/fever/chills/nausea/vomiting/chest or abdominal pain/cough/dyspnea/diarrhea. Otherwise see above. Constitutional Vitals: Vital Signs Temp Pulse Resp BP Pulse Ox 37.7 C H 75 16 118/65 96 10/05/20 08:00 10/05/20 08:00 10/05/20 08:00 10/05/20 08:00 10/05/20 08:00 Period Temp Pulse Resp BP Sys/Nelson Pulse Ox Last 24 Hr 37.1 C-38.1 C 68-85 16-20 98-136/59-89 96-98 Intake and Output 10/05/20 10/05/20 10/05/20 05:59 13:59 21:59 Intake Total 200 800 Output Total 800 Balance -600 800 Weight 92.76 kg Patient Weight 10/06/20 05:59 Weight 92.76 kg Intake & Output: Intake & Output 10/05/20 10/05/20 10/05/20 05:59 13:59 21:59 Intake Total 200 800 Output Total 800 Balance -600 800 Weight 92.76 kg Intake: Oral 200 800 Output: Urine Catheter Amount 800 Other: Urine Appearance Clear Urine Color Bright Yellow Stool Size Moderate Stool Color Brown Stool Consistency Formed # Bowel Movements 1 General appearance: cooperative and no acute distress Head Head exam: Present atraumatic and normocephalic Eye Eye exam: Present EOMI and PERRL ENT ENT exam: Present mucous membranes moist, normal exam and normal external ear exam Neck Neck exam: Present normal inspection; Absent lymphadenopathy, tenderness and thyromegaly Respiratory Respiratory exam: Absent accessory muscle use, respiratory distress and wheezes Cardiovascular Cardiovascular exam: Present normal rate and rhythm; Absent JVD GI/Abdominal GI/Abdominal exam: Present normal bowel sounds and soft; Absent organomegaly and tenderness Rectal Rectal exam: Present deferred Extremities Exam Extremities exam: Present full ROM, normal capillary refill and normal inspection; Absent tenderness Neurological Exam Neurological exam: Present alert, CN II-XII intact and oriented X3; Absent motor sensory deficit Psychiatric Psychiatric exam: Present normal affect and normal mood; Absent anxious and depressed Skin Skin exam: Present dry; Absent intact Additional comments: pressure wounds to left side of body/face OBJ DATA Labs CBC & Chem 7: 10/05/20 05:11 10/05/20 05:11 Labs: Abnormal Lab Results 10/05/20 10/05/20 10/04/20 05:11 05:11 05:40 RBC 2.33 L Hgb 7.7 L Hct 23.8 L MCV 102.1 H MPV 11.3 H Neut % (Auto) 79.4 H Lymph % (Auto) 10.9 L Lymph # (Auto) 1.11 L Absolute Neutrophils 8.09 H Chloride 110 H BUN 24 H Glucose 116 H Uric Acid Calcium 8.2 L 8.4 L AST 42 H 50 H ALT 57 H 62 H Lactate Dehydrogenase Total Creatine Kinase Total Protein 4.9 L 5.0 L Albumin 2.2 L 1.9 L Albumin/Globulin Ratio 0.8 L 0.6 L 10/04/20 10/03/20 10/03/20 05:40 04:57 04:57 RBC 2.46 L Hgb 8.2 L Hct 26.4 L MCV 107.3 H MPV 11.6 H Neut % (Auto) 80.4 H Lymph % (Auto) 10.4 L Lymph # (Auto) 1.05 L Absolute Neutrophils 8.12 H Chloride BUN 36 H Glucose 119 H Uric Acid 8.4 H Calcium 8.2 L AST ALT 55 H Lactate Dehydrogenase 229 H Total Creatine Kinase 245 H Total Protein 4.8 L Albumin 2.2 L Albumin/Globulin Ratio 0.8 L 10/03/20 04:57 RBC 2.27 L Hgb 7.6 L Hct 24.1 L MCV 106.2 H MPV 11.5 H Neut % (Auto) Lymph % (Auto) 12.0 L Lymph # (Auto) 1.12 L Absolute Neutrophils Chloride BUN Glucose Uric Acid Calcium AST ALT Lactate Dehydrogenase Total Creatine Kinase Total Protein Albumin Albumin/Globulin Ratio Meds: Medications Acetaminophen (Acetaminophen 325 Mg Tablet) 650 mg PO Q6HP PRN PRN Reason: PAIN/FEVER > 101 Acetaminophen/Codeine Phosphate (Acetaminophen W/Codeine #3 1 Tablet) 1 tab PO Q4-6HP PRN PRN Reason: Pain Last Admin: 10/04/20 04:19 Dose: 1 tab Documented by: Hydrocodone Bitart/Acetaminophen (Hydrocodone/Apap 5/325mg Tablet) 1 tab PO Q4HP PRN PRN Reason: PAIN LEVEL 3-6 Last Admin: 10/04/20 15:54 Dose: 1 tab Documented by: Albuterol/Ipratropium (Ipratropium/Albuterol 3 Ml Ampul.Neb) 3 ml NEB Q4HP PRN PRN Reason: Shortness Of Breath Baclofen (Baclofen 10 Mg Tablet) 10 mg PO BIDP PRN PRN Reason: spasms Ceftriaxone Sodium (Ceftriaxone 1 Gm Vial) 1 gm IV DAILY [facility] Last Admin: 10/05/20 08:17 Dose: 1 gm Documented by: Docusate Sodium (Docusate Sodium 100 Mg Capsule) 100 mg PO BID [facility] Last Admin: 10/05/20 08:17 Dose: 100 mg Documented by: Enoxaparin Sodium (Enoxaparin 40 Mg/0.4 Ml Syringe) 40 mg SQ DAILY [facility] Last Admin: 10/05/20 08:17 Dose: 40 mg Documented by: Hydralazine HCl (Hydralazine 20 Mg/Ml Vial) 0 mg IV Q2HP PRN PRN Reason: Hypertension Magnesium Sulfate (Magnesium Sulfate) 2 gm in 50 mls @ 50 mls/hr IV UD PRN PRN Reason: Magnesium </= 1.6 Potassium Chloride 40 meq/ (Dextrose) 520 mls @ 130 mls/hr IV UD PRN PRN Reason: Potassium < 3 Labetalol HCl (Labetalol 5 Mg/Ml Ml) 0 mg IV Q2HP PRN PRN Reason: Hypertension Ondansetron HCl (Ondansetron 4 Mg/2 Ml Vial) 4 mg IV Q4HP PRN PRN Reason: Nausea And Vomiting Polyethylene Glycol (Polyethylene Glycol 3350 17 Gm Packet) 17 gm PO DAILYP PRN PRN Reason: Constipation Potassium Chloride (Potassium Chloride 20 Meq Tablet) 40 meq PO UD PRN PRN Reason: Potssium is 3-3.5 Potassium Chloride (Potassium Chloride 20 Meq Tablet) 40 meq PO UD PRN PRN Reason: Potassium < 3 Quetiapine Fumarate (Quetiapine 25 Mg Tablet) 25 mg PO HS [facility] Last Admin: 10/04/20 20:44 Dose: 25 mg Documented by: Senna (Sennosides 1 Tablet) 2 tab PO DAILYP PRN PRN Reason: Constipation Simvastatin (Simvastatin 40 Mg Tablet) 40 mg PO QHS [facility] Last Admin: 10/04/20 20:44 Dose: 40 mg Documented by: Sodium Chloride (0.9 % Sodium Chloride 10 Ml Syringe) 10 ml IV Q8 [facility] Last Admin: 10/05/20 05:38 Dose: 10 ml Documented by: A/P Assessment and plan (1) Rhabdomyolysis: Status: Acute (2) Acute renal failure: Status: Acute (3) Weakness: Status: Acute (4) Acute dehydration: Status: Acute (5) UTI (urinary tract infection): Status: Acute (6) Anemia, macrocytic: Status: Acute Narrative A/P Narrative: 1. Rhabdomyolysis: Saline lock Encourage patient to increase his oral food and drink intake to stay hydrated Daily serum CK level PT OT evaluation and treatment for placement planning-->SNF 2. Dehydration: Saline lock Encourage patient to increase his oral food and drink intake to stay hydrated Daily CMP to trend BUN/Cr ratio to make sure degree of dehydration is improving 3. Macrocytic anemia: Iron panel Folate and vitamin B12 level Daily cbc w/ auto diff to trend H/H and transfuse pRBC if hemoglobin <7.0, active bleeding, or symptomatic 4. UTI: Urine cultures grew K pneumoniae Currently on Rocephin. Will continue while in house, and convert to oral ant ibiotics such as Levaquin at time of discharge 5. Acute kidney injury and hypernatremia: Resolved. Saline lock GI ppx: not currently indicated DVT ppx: Lovenox Code status: DNI DNR Prognosis: stable Disposition: transfer to inpatient med surg; PT OT evaluation and treatment for placement planning-->SNF Time Spent With Patient Time: Total time spent is greater than 50% in coordination of care (as documented) at patient's floor/unit and/or counseling patient: QUALITY VTE Deep Vein Thrombosis/Pulmonary Embolism Present on Admission: No
[2020-10-05] MEDS: QUEtiapine 25 MG TABLET PO SCH (21:33)
[2020-10-05] MEDS: SIMVASTATIN 40 MG TABLET PO SCH (21:34)
[2020-10-06] MEDS: HYDROcodone/APAP 5/325MG TABLET PO PRN (02:02)
[2020-10-06] MEDS: ACETAMINOPHEN 325 MG TABLET PO PRN (03:38)
[2020-10-06] MEDS: 0.9 % SODIUM CHLORIDE 10 ML SYRINGE IV SCH ×3 (05:27→20:57)
[2020-10-06 06:49] LABS: Basophils # (Auto) 0.03 K/mcL (0.00-0.20); Basophils % (Auto) 0.3 % (0.0-2.0); Eosinophils # (Auto) 0.15 K/mcL (0.00-0.70); Eosinophils % (Auto) 1.7 % (0.0-7.0); Hematocrit 23.6 % (41.0-55.0); Hemoglobin 7.6 g/dL (13.5-16.5); Lymphocytes # (Auto) 0.99 K/mcL (1.50-4.80); Lymphocytes % (Auto) 10.9 % (15.0-49.0); Mean Cell Volume 101.3 fL (80.0-100.0); Mean Corpuscular HGB Conc 32.2 g/dL (31.0-36.0); Monocytes # (Auto) 0.68 K/mcL (0.10-0.90); Monocytes % (Auto) 7.5 % (1.0-12.0); Neutrophils % (Auto) 79.6 % (38.0-78.0); Platelet Count 221 K/mcL (140-440); RBC 2.33 M/mcL (4.50-5.90); Red Cell Distribution Width 12.1 % (11.5-14.5); WBC 9.1 K/mcL (4.5-11.0)
[2020-10-06 07:17] LABS: ALT/SGPT 52 U/L (<40); AST/SGOT 34 U/L (<40); Albumin 2.3 gm/dL (3.2-5.2); Albumin/Globulin Ratio 0.9 (1.0-2.3); Alkaline Phosphatase 63 U/L (39-117); Bilirubin,Total 0.3 mg/dL (0.1-1.0); Blood Urea Nitrogen 17 mg/dL (8-23); Calcium 8.3 mg/dL (8.6-10.4); Carbon Dioxide 22 mmol/L (22-30); Chloride 103 mmol/L (96-108); Globulin 2.6 gm/dL (2.2-3.7); Glomerular Filtration Rate 85; Glucose 99 mg/dL (70-105)
[2020-10-06 07:18] LABS: Creatine Kinase 96 U/L (24-195)
[2020-10-06] MEDS: DOCUSATE SODIUM 100 MG CAPSULE PO SCH ×2 (08:38→22:59)
[2020-10-06] MEDS: ENOXAPARIN 40 MG/0.4 ML SYRINGE SQ SCH (08:38)
[2020-10-06] MEDS: cefTRIAXone 1 GM VIAL IV SCH (08:43)
--- NOTE | 2020-10-06 13:21 | Internal Med Progress Note ---
SUBJECTIVE Subjective Patient information: Note initiated : 10/06/20 at 1:17 pm Service Date, if different from initiated Date: [] Patient: Baldemar Polanco 69 y/o M admitted on 09/29/20 for Fall, Down For Several Days. Chief Complaint: [] Interval history: History of present illness: Mr. Polanco is a 69 year old M Presents to the ED by EMS after the ex-spouse found him lying on the ground covered with feces and urine. She last spoke with him 8 days ago. Looks like he had a primary care visit on the . Had generalized pain including neck pain and came in with a c-collar. Poor historian not able to give much of the history. Sounds like there was a question of some left-sided weakness but Work-up in the ED revealed hyponatremia and acute kidney injury with rhabdomyolysis. Urinalysis pending. 09/30 Feels tired. Looks much better. Mentation much better. Has some left wrist pain. 10/01 Feels better. Chemistry much improved. Renal function improved. 10/02 Continues to feel better. Sodium stable. Renal function much improved. No new pains or complaints. Urine culture with gram-negative bacillus x2 10/04: Continues to feel better. Serum CK continue to down trend now 160. Serum Cr level 1.1. Fever with Tmax 38.1 earlier this morning. Denies any muscle cramps or weakness. Denies any pain. Good appetite. Denies dysuria. Fever with Tmax 38.1 earlier this morning. 10/05: Serum CK continue to down trend now 109. Serum level 1.0. Fever with Tmax 38.1 overnight. c/o left forearm muscle cramps. 10/06: Serum CK continue to down trend now 96. Serum level 0.9. Afebrile overnight. Denies any muscle cramps. Review of Systems: denies headache/fever/chills/nausea/vomiting/chest or abdominal pain/cough/dyspnea/diarrhea. Otherwise see above. Constitutional Vitals: Vital Signs Temp Pulse Resp BP Pulse Ox 37.0 C 72 12 119/78 97 10/06/20 12:00 10/06/20 12:00 10/06/20 08:00 10/06/20 12:00 10/06/20 12:00 Period Temp Pulse Resp BP Sys/Nelson Pulse Ox Last 24 Hr 36.9 C-37.9 C 71-76 12-16 115-134/67-79 95-99 Intake and Output 10/05/20 10/06/20 10/06/20 21:59 05:59 13:59 Intake Total 660 680 Output Total 650 875 2 Balance 10 -195 -2 Weight 91.399 kg Intake & Output: Intake & Output 10/05/20 10/06/20 10/06/20 21:59 05:59 13:59 Intake Total 660 680 Output Total 650 875 2 Balance 10 -195 -2 Weight 91.399 kg Intake: Oral 660 680 Output: Urine Catheter Amount 650 875 Stool 2 Other: Meal Dinner Percent of Meal Consumed 75% Feeding Ability Independent Urine Appearance Clear Urine Color Dark Yellow Stool Size Small General appearance: cooperative and no acute distress Exam: General: awake, No acute Distress Eyes/N/T: EOMI, Head/Neck: neck supple, CV: RRR, No murmurs, Pulm: Clear b/l, no wheezing/rhonchi/rales Abd: soft, nontender, +BS x4 Ext: no clubbing/cyanosis/edema Neuro: Awake, mentation much better. Follows commands. Moves extremities. A&O, Skin: warm/dry, pressure wounds to left side of body/face Head Head exam: Present atraumatic and normocephalic Eye Eye exam: Present EOMI and PERRL ENT ENT exam: Present mucous membranes moist, normal exam and normal external ear exam Additional comments: Left facial bruise Neck Neck exam: Present normal inspection; Absent lymphadenopathy, tenderness and thyromegaly Respiratory Respiratory exam: Absent accessory muscle use, respiratory distress and wheezes Cardiovascular Cardiovascular exam: Present normal rate and rhythm; Absent JVD GI/Abdominal GI/Abdominal exam: Present normal bowel sounds and soft; Absent organomegaly and tenderness Rectal Rectal exam: Present deferred Extremities Exam Extremities exam: Present full ROM, normal capillary refill and normal inspection; Absent tenderness Neurological Exam Neurological exam: Present alert, CN II-XII intact and oriented X3; Absent motor sensory deficit Psychiatric Psychiatric exam: Present normal affect and normal mood; Absent anxious and depressed Skin Skin exam: Present dry and intact Additional comments: Left facial bruise OBJ DATA Labs CBC & Chem 7: 10/06/20 05:50 10/06/20 05:50 Labs: Abnormal Lab Results 10/06/20 10/06/20 10/05/20 05:50 05:50 05:11 RBC 2.33 L Hgb 7.6 L Hct 23.6 L MCV 101.3 H MPV 11.0 H Neut % (Auto) 79.6 H Lymph % (Auto) 10.9 L Lymph # (Auto) 0.99 L Absolute Neutrophils Chloride BUN Glucose Calcium 8.3 L 8.2 L AST 42 H ALT 52 H 57 H Total Protein 4.9 L 4.9 L Albumin 2.3 L 2.2 L Albumin/Globulin Ratio 0.9 L 0.8 L 10/05/20 10/04/20 10/04/20 05:11 05:40 05:40 RBC 2.33 L 2.46 L Hgb 7.7 L 8.2 L Hct 23.8 L 26.4 L MCV 102.1 H 107.3 H MPV 11.3 H 11.6 H Neut % (Auto) 79.4 H 80.4 H Lymph % (Auto) 10.9 L 10.4 L Lymph # (Auto) 1.11 L 1.05 L Absolute Neutrophils 8.09 H 8.12 H Chloride 110 H BUN 24 H Glucose 116 H Calcium 8.4 L AST 50 H ALT 62 H Total Protein 5.0 L Albumin 1.9 L Albumin/Globulin Ratio 0.6 L Meds: Medications Acetaminophen (Acetaminophen 325 Mg Tablet) 650 mg PO Q6HP PRN PRN Reason: PAIN/FEVER > 101 Last Admin: 10/06/20 03:38 Dose: 650 mg Documented by: Acetaminophen/Codeine Phosphate (Acetaminophen W/Codeine #3 1 Tablet) 1 tab PO Q4-6HP PRN PRN Reason: Pain Last Admin: 10/04/20 04:19 Dose: 1 tab Documented by: Hydrocodone Bitart/Acetaminophen (Hydrocodone/Apap 5/325mg Tablet) 1 tab PO Q4HP PRN PRN Reason: PAIN LEVEL 3-6 Last Admin: 10/06/20 02:02 Dose: 1 tab Documented by: Albuterol/Ipratropium (Ipratropium/Albuterol 3 Ml Ampul.Neb) 3 ml NEB Q4HP PRN PRN Reason: Shortness Of Breath Baclofen (Baclofen 10 Mg Tablet) 10 mg PO BIDP PRN PRN Reason: spasms Ceftriaxone Sodium (Ceftriaxone 1 Gm Vial) 1 gm IV DAILY [facility] Stop: 10/07/20 10:00 Last Admin: 10/06/20 08:43 Dose: 1 gm Documented by: Docusate Sodium (Docusate Sodium 100 Mg Capsule) 100 mg PO BID [facility] Last Admin: 10/06/20 08:38 Dose: 100 mg Documented by: Enoxaparin Sodium (Enoxaparin 40 Mg/0.4 Ml Syringe) 40 mg SQ DAILY [facility] Last Admin: 10/06/20 08:38 Dose: 40 mg Documented by: Hydralazine HCl (Hydralazine 20 Mg/Ml Vial) 0 mg IV Q2HP PRN PRN Reason: Hypertension Magnesium Sulfate (Magnesium Sulfate) 2 gm in 50 mls @ 50 mls/hr IV UD PRN PRN Reason: Magnesium </= 1.6 Potassium Chloride 40 meq/ (Dextrose) 520 mls @ 130 mls/hr IV UD PRN PRN Reason: Potassium < 3 Labetalol HCl (Labetalol 5 Mg/Ml Ml) 0 mg IV Q2HP PRN PRN Reason: Hypertension Ondansetron HCl (Ondansetron 4 Mg/2 Ml Vial) 4 mg IV Q4HP PRN PRN Reason: Nausea And Vomiting Polyethylene Glycol (Polyethylene Glycol 3350 17 Gm Packet) 17 gm PO DAILYP PRN PRN Reason: Constipation Potassium Chloride (Potassium Chloride 20 Meq Tablet) 40 meq PO UD PRN PRN Reason: Potssium is 3-3.5 Potassium Chloride (Potassium Chloride 20 Meq Tablet) 40 meq PO UD PRN PRN Reason: Potassium < 3 Quetiapine Fumarate (Quetiapine 25 Mg Tablet) 25 mg PO HS [facility] Last Admin: 10/05/20 21:33 Dose: 25 mg Documented by: Senna (Sennosides 1 Tablet) 2 tab PO DAILYP PRN PRN Reason: Constipation Simvastatin (Simvastatin 40 Mg Tablet) 40 mg PO QHS [facility] Last Admin: 10/05/20 21:34 Dose: 40 mg Documented by: Sodium Chloride (0.9 % Sodium Chloride 10 Ml Syringe) 10 ml IV Q8 [facility] Last Admin: 10/06/20 05:27 Dose: 10 ml Documented by: A/P Assessment and plan (1) Rhabdomyolysis: Status: Acute (2) Acute renal failure: Status: Acute (3) Weakness: Status: Acute (4) Acute dehydration: Status: Acute (5) UTI (urinary tract infection): Status: Acute (6) Anemia, macrocytic: Status: Acute Narrative A/P Narrative: 1. Rhabdomyolysis: Saline lock Encourage patient to increase his oral food and drink intake to stay hydrated Daily serum CK level PT OT evaluation and treatment for placement planning-->SNF 2. Dehydration: Saline lock Encourage patient to increase his oral food and drink intake to stay hydrated Daily CMP to trend BUN/Cr ratio to make sure degree of dehydration is improving 3. Macrocytic anemia: Iron panel Folate and vitamin B12 level Daily cbc w/ auto diff to trend H/H and transfuse pRBC if hemoglobin <7.0, active bleeding, or symptomatic 4. UTI: Urine cultures grew K pneumoniae Vickie day 10/10 5. Acute kidney injury and hypernatremia: Resolved. Saline lock GI ppx: not currently indicated DVT ppx: Lovenox Code status: DNI DNR Prognosis: stable Disposition: transfer to inpatient med surg; PT OT evaluation and treatment for placement planning-->SNF Time Spent With Patient Time: Total time spent is greater than 50% in coordination of care (as documented) at patient's floor/unit and/or counseling patient: QUALITY VTE Deep Vein Thrombosis/Pulmonary Embolism Present on Admission: No
[2020-10-06] MEDS: SIMVASTATIN 40 MG TABLET PO SCH (20:57)
[2020-10-06] MEDS: QUEtiapine 25 MG TABLET PO SCH (20:57)
[2020-10-07] MEDS: 0.9 % SODIUM CHLORIDE 10 ML SYRINGE IV SCH ×3 (04:13→21:59)
[2020-10-07] MEDS: ACETAMINOPHEN 325 MG TABLET PO PRN ×2 (06:43→15:41)
[2020-10-07 07:31] LABS: Basophils # (Auto) 0.02 K/mcL (0.00-0.20); Basophils % (Auto) 0.2 % (0.0-2.0); Eosinophils # (Auto) 0.13 K/mcL (0.00-0.70); Eosinophils % (Auto) 1.4 % (0.0-7.0); Hematocrit 23.8 % (41.0-55.0); Hemoglobin 7.6 g/dL (13.5-16.5); Lymphocytes # (Auto) 0.79 K/mcL (1.50-4.80); Lymphocytes % (Auto) 8.3 % (15.0-49.0); Mean Cell Volume 102.6 fL (80.0-100.0); Mean Corpuscular HGB Conc 31.9 g/dL (31.0-36.0); Mean Platelet Volume 10.9 fL (7.4-10.4); Monocytes # (Auto) 0.86 K/mcL (0.10-0.90); Neutrophils % (Auto) 81.1 % (38.0-78.0); Platelet Count 240 K/mcL (140-440); RBC 2.32 M/mcL (4.50-5.90); Red Cell Distribution Width 12.3 % (11.5-14.5); WBC 9.5 K/mcL (4.5-11.0)
[2020-10-07 08:21] LABS: Creatine Kinase 80 U/L (24-195)
[2020-10-07 08:22] LABS: ALT/SGPT 48 U/L (<40); AST/SGOT 29 U/L (<40); Albumin 2.3 gm/dL (3.2-5.2); Albumin/Globulin Ratio 0.8 (1.0-2.3); Alkaline Phosphatase 63 U/L (39-117); Bilirubin,Total 0.4 mg/dL (0.1-1.0); Blood Urea Nitrogen 17 mg/dL (8-23); Calcium 8.3 mg/dL (8.6-10.4); Carbon Dioxide 19 mmol/L (22-30); Chloride 107 mmol/L (96-108); Globulin 2.8 gm/dL (2.2-3.7); Glomerular Filtration Rate 89; Glucose 111 mg/dL (70-105)
[2020-10-07] MEDS: DOCUSATE SODIUM 100 MG CAPSULE PO SCH ×3 (08:25→22:41)
[2020-10-07] MEDS: cefTRIAXone 1 GM VIAL IV SCH (08:33)
[2020-10-07] MEDS: ENOXAPARIN 40 MG/0.4 ML SYRINGE SQ SCH (08:33)
--- NOTE | 2020-10-07 11:14 | Internal Med Progress Note ---
SUBJECTIVE Subjective Patient information: Note initiated : 10/07/20 at 11:13 am Service Date, if different from initiated Date: [] Patient: Baldemar Polanco 69 y/o M admitted on 09/29/20 for Fall, Down For Several Days. Chief Complaint: [] Interval history: History of present illness: Mr. Polanco is a 69 year old M Presents to the ED by EMS after the ex-spouse found him lying on the ground covered with feces and urine. She last spoke with him 8 days ago. Looks like he had a primary care visit on the . Had generalized pain including neck pain and came in with a c-collar. Poor historian not able to give much of the history. Sounds like there was a question of some left-sided weakness but Work-up in the ED revealed hyponatremia and acute kidney injury with rhabdomyolysis. Urinalysis pending. 09/30 Feels tired. Looks much better. Mentation much better. Has some left wrist pain. 10/01 Feels better. Chemistry much improved. Renal function improved. 10/02 Continues to feel better. Sodium stable. Renal function much improved. No new pains or complaints. Urine culture with gram-negative bacillus x2 10/04: Continues to feel better. Serum CK continue to down trend now 160. Serum Cr level 1.1. Fever with Tmax 38.1 earlier this morning. Denies any muscle cramps or weakness. Denies any pain. Good appetite. Denies dysuria. Fever with Tmax 38.1 earlier this morning. 10/05: Serum CK continue to down trend now 109. Serum Cr level 1.0. Fever with Tmax 38.1 overnight. c/o left forearm muscle cramps. 10/06: Serum CK continue to down trend now 96. Serum Cr level 0.9. Afebrile overnight. Denies any muscle cramps. /4: Serum CK level normalized. Serum Cr level 0.8. Fever 38.8 this morning. Review of Systems: denies headache/fever/chills/nausea/vomiting/chest or abdominal pain/cough/dyspnea/diarrhea. Otherwise see above. Constitutional Vitals: Vital Signs Temp Pulse Resp BP Pulse Ox 38.8 C H 77 18 136/71 98 10/07/20 06:47 10/07/20 06:47 10/07/20 06:47 10/07/20 06:47 10/07/20 06:47 Period Temp Pulse Resp BP Sys/Nelson Pulse Ox Last 24 Hr 37.0 C-38.8 C 74-101 12-18 119-157/66-78 97-100 Intake and Output 10/06/20 10/07/20 10/07/20 21:59 05:59 13:59 Intake Total 480 240 Output Total 850 700 Balance -370 -460 Weight 88.139 kg Intake & Output: Intake & Output 10/06/20 10/07/20 10/07/20 21:59 05:59 13:59 Intake Total 480 240 Output Total 850 700 Balance -370 -460 Weight 88.139 kg Intake: Oral 480 240 Output: Urine Catheter Amount 850 700 Other: Meal Lunch Percent of Meal Consumed 100% Urine Appearance Cloudy Small Blood Clots Urine Color Dark Yellow Uretheral (Geller) Dark Yellow Dark Yellow Urine Odor Normal Stool Size Moderate Moderate Stool Color Brown Brown Stool Consistency Loose Soft # Bowel Movements 1 # of times incontinent of 5 Bowels General appearance: cooperative and no acute distress Exam: General: awake, No acute Distress Eyes/N/T: EOMI, Head/Neck: neck supple, CV: RRR, No murmurs, Pulm: Clear b/l, no wheezing/rhonchi/rales Abd: soft, nontender, +BS x4 Ext: no clubbing/cyanosis/edema Neuro: Awake, mentation much better. Follows commands. Moves extremities. A&O, Skin: warm/dry, pressure wounds to left side of body/face Head Head exam: Present atraumatic and normocephalic Eye Eye exam: Present EOMI and PERRL ENT ENT exam: Present mucous membranes moist, normal exam and normal external ear exam Additional comments: Bruise on left face Neck Neck exam: Present normal inspection; Absent lymphadenopathy, tenderness and thyromegaly Respiratory Respiratory exam: Absent accessory muscle use, respiratory distress and wheezes Cardiovascular Cardiovascular exam: Present normal rate and rhythm; Absent JVD GI/Abdominal GI/Abdominal exam: Present normal bowel sounds and soft; Absent organomegaly and tenderness Rectal Rectal exam: Present deferred Extremities Exam Extremities exam: Present full ROM, normal capillary refill and normal insp ection; Absent tenderness Neurological Exam Neurological exam: Present alert, CN II-XII intact and oriented X3; Absent motor sensory deficit Psychiatric Psychiatric exam: Present normal affect and normal mood; Absent anxious and depressed Skin Skin exam: Present dry; Absent intact Additional comments: ulcers on bilateral forearm covered with wound dressings Bruise on left face OBJ DATA Labs CBC & Chem 7: 10/07/20 06:21 10/07/20 06:21 Labs: Abnormal Lab Results 10/07/20 10/07/20 10/06/20 06:21 06:21 05:50 RBC 2.32 L Hgb 7.6 L Hct 23.8 L MCV 102.6 H MPV 10.9 H Neut % (Auto) 81.1 H Lymph % (Auto) 8.3 L Lymph # (Auto) 0.79 L Absolute Neutrophils Carbon Dioxide 19 L Glucose 111 H Calcium 8.3 L 8.3 L AST ALT 48 H 52 H Total Protein 5.1 L 4.9 L Albumin 2.3 L 2.3 L Albumin/Globulin Ratio 0.8 L 0.9 L 10/06/20 10/05/20 10/05/20 05:50 05:11 05:11 RBC 2.33 L 2.33 L Hgb 7.6 L 7.7 L Hct 23.6 L 23.8 L MCV 101.3 H 102.1 H MPV 11.0 H 11.3 H Neut % (Auto) 79.6 H 79.4 H Lymph % (Auto) 10.9 L 10.9 L Lymph # (Auto) 0.99 L 1.11 L Absolute Neutrophils 8.09 H Carbon Dioxide Glucose Calcium 8.2 L AST 42 H ALT 57 H Total Protein 4.9 L Albumin 2.2 L Albumin/Globulin Ratio 0.8 L Meds: Medications Acetaminophen (Acetaminophen 325 Mg Tablet) 650 mg PO Q6HP PRN PRN Reason: PAIN/FEVER > 101 Last Admin: 10/07/20 06:43 Dose: 650 mg Documented by: Acetaminophen/Codeine Phosphate (Acetaminophen W/Codeine #3 1 Tablet) 1 tab PO Q4-6HP PRN PRN Reason: Pain Last Admin: 10/04/20 04:19 Dose: 1 tab Documented by: Hydrocodone Bitart/Acetaminophen (Hydrocodone/Apap 5/325mg Tablet) 1 tab PO Q4HP PRN PRN Reason: PAIN LEVEL 3-6 Last Admin: 10/06/20 02:02 Dose: 1 tab Documented by: Albuterol/Ipratropium (Ipratropium/Albuterol 3 Ml Ampul.Neb) 3 ml NEB Q4HP PRN PRN Reason: Shortness Of Breath Baclofen (Baclofen 10 Mg Tablet) 10 mg PO BIDP PRN PRN Reason: spasms Last Admin: 10/06/20 19:16 Dose: 10 mg Documented by: Docusate Sodium (Docusate Sodium 100 Mg Capsule) 100 mg PO BID [facility] Last Admin: 10/07/20 08:25 Dose: Not Given Documented by: Enoxaparin Sodium (Enoxaparin 40 Mg/0.4 Ml Syringe) 40 mg SQ DAILY [facility] Last Admin: 10/07/20 08:33 Dose: 40 mg Documented by: Hydralazine HCl (Hydralazine 20 Mg/Ml Vial) 0 mg IV Q2HP PRN PRN Reason: Hypertension Magnesium Sulfate (Magnesium Sulfate) 2 gm in 50 mls @ 50 mls/hr IV UD PRN PRN Reason: Magnesium </= 1.6 Potassium Chloride 40 meq/ (Dextrose) 520 mls @ 130 mls/hr IV UD PRN PRN Reason: Potassium < 3 Labetalol HCl (Labetalol 5 Mg/Ml Ml) 0 mg IV Q2HP PRN PRN Reason: Hypertension Ondansetron HCl (Ondansetron 4 Mg/2 Ml Vial) 4 mg IV Q4HP PRN PRN Reason: Nausea And Vomiting Polyethylene Glycol (Polyethylene Glycol 3350 17 Gm Packet) 17 gm PO DAILYP PRN PRN Reason: Constipation Potassium Chloride (Potassium Chloride 20 Meq Tablet) 40 meq PO UD PRN PRN Reason: Potssium is 3-3.5 Potassium Chloride (Potassium Chloride 20 Meq Tablet) 40 meq PO UD PRN PRN Reason: Potassium < 3 Quetiapine Fumarate (Quetiapine 25 Mg Tablet) 25 mg PO HS [facility] Last Admin: 10/06/20 20:57 Dose: 25 mg Documented by: Senna (Sennosides 1 Tablet) 2 tab PO DAILYP PRN PRN Reason: Constipation Simvastatin (Simvastatin 40 Mg Tablet) 40 mg PO QHS [facility] Last Admin: 10/06/20 20:57 Dose: 40 mg Documented by: Sodium Chloride (0.9 % Sodium Chloride 10 Ml Syringe) 10 ml IV Q8 [facility] Last Admin: 10/07/20 04:13 Dose: 10 ml Documented by: A/P Assessment and plan (1) Rhabdomyolysis: Status: Acute (2) Acute renal failure: Status: Acute (3) Weakness: Status: Acute (4) Acute dehydration: Status: Acute (5) UTI (urinary tract infection): Status: Acute (6) Anemia, macrocytic: Status: Acute Narrative A/P Narrative: 1. Rhabdomyolysis: Saline lock Encourage patient to increase his oral food and drink intake to stay hydrated Daily serum CK level PT OT evaluation and treatment for placement planning-->SNF 2. Dehydration: Saline lock Encourage patient to increase his oral food and drink intake to stay hydrated Daily CMP to trend BUN/Cr ratio to make sure degree of dehydration is improving 3. Macrocytic anemia: Iron panel Folate and vitamin B12 level Daily cbc w/ auto diff to trend H/H and transfuse pRBC if hemoglobin <7.0, act champ bleeding, or symptomatic 4. UTI: Urine cultures grew K pneumoniae Rocephin day 11/09 Check blood cultures X2 and chest X ray 2 views to rule out other source of infection such as bacteremia or pneumonia given persistent fever 5. Acute kidney injury and hypernatremia: Resolved. Saline lock GI ppx: not currently indicated DVT ppx: Lovenox Code status: DNI DNR Prognosis: stable Disposition: transfer to inpatient med surg; PT OT evaluation and treatment for placement planning-->SNF Time Spent With Patient Time: Total time spent is greater than 50% in coordination of care (as documented) at patient's floor/unit and/or counseling patient: QUALITY VTE Deep Vein Thrombosis/Pulmonary Embolism Present on Admission: No
--- NOTE | 2020-10-07 14:05 | XRay Report ---
INDICATION: sob TECHNIQUE: AP portable upright chest x-ray COMPARISON: Previous chest x-rays dated 09/29/2020, 03/30/2007 FINDINGS: Lungs:Negative. No pulmonary parenchymal infiltrate or mass. No focal abnormality Heart, vascular:There is moderate cardiomegaly. Pulmonary vascularity is normal. No pulmonary edema or pulmonary congestion Mediastinum, [place]:No mediastinal widening. No hilar mass Pleura:No pleural fluid. No pleural-based mass or calcification Skeletal:Negative. IMPRESSION: 1. Mild cardiomegaly 2. Otherwise negative AP chest x-ray Interpreted and Authenticated by: Liam Rubio 10/07/20
[2020-10-07] MEDS: HYDROcodone/APAP 5/325MG TABLET PO PRN (21:58)
[2020-10-07] MEDS: QUEtiapine 25 MG TABLET PO SCH (21:58)
[2020-10-07] MEDS: SIMVASTATIN 40 MG TABLET PO SCH (21:59)
[2020-10-08] MEDS: ACETAMINOPHEN 325 MG TABLET PO PRN ×3 (05:13→23:16)
[2020-10-08] MEDS: 0.9 % SODIUM CHLORIDE 10 ML SYRINGE IV SCH ×3 (05:13→20:50)
[2020-10-08] MEDS: ENOXAPARIN 40 MG/0.4 ML SYRINGE SQ SCH (07:58)
[2020-10-08] MEDS: DOCUSATE SODIUM 100 MG CAPSULE PO SCH ×2 (08:14→20:49)
[2020-10-08] MEDS: HYDROcodone/APAP 5/325MG TABLET PO PRN ×3 (08:41→20:48)
--- NOTE | 2020-10-08 12:59 | Internal Med Progress Note ---
SUBJECTIVE Subjective Patient information: Note initiated : 10/08/20 at 12:53 pm Service Date, if different from initiated Date: [] Patient: Baldemar Polanco 69 y/o M admitted on 09/29/20 for Fall, Down For Several Days. Chief Complaint: [] Interval history: History of present illness: Mr. Polanco is a 69 year old M Presents to the ED by EMS after the ex-spouse found him lying on the ground covered with feces and urine. She last spoke with him 8 days ago. Looks like he had a primary care visit on the . Had generalized pain including neck pain and came in with a c-collar. Poor historian not able to give much of the history. Sounds like there was a question of some left-sided weakness but Work-up in the ED revealed hyponatremia and acute kidney injury with rhabdomyolysis. Urinalysis pending. 09/30 Feels tired. Looks much better. Mentation much better. Has some left wrist pain. 10/01 Feels better. Chemistry much improved. Renal function improved. 10/02 Continues to feel better. Sodium stable. Renal function much improved. No new pains or complaints. Urine culture with gram-negative bacillus x2 10/04: Continues to feel better. Serum CK continue to down trend now 160. Serum Cr level 1.1. Fever with Tmax 38.1 earlier this morning. Denies any muscle cramps or weakness. Denies any pain. Good appetite. Denies dysuria. Fever with Tmax 38.1 earlier this morning. 10/05: Serum CK continue to down trend now 109. Serum Cr level 1.0. Fever with Tmax 38.1 overnight. c/o left forearm muscle cramps. 10/06: Serum CK continue to down trend now 96. Serum Cr level 0.9. Afebrile overnight. Denies any muscle cramps. 10/07: Serum CK level normalized. Serum Cr level 0.8. Fever 38.8 this morning. 10/08-patient doing a lot better this morning. Labs pending. Complains of left ankle swelling and pain. Ordered imaging. T-max 101.9. Clinically improved. Await SNF transfer. Constitutional Vitals: Vital Signs Temp Pulse Resp BP Pulse Ox 99 F 66 18 132/73 99 10/08/20 07:40 10/08/20 07:40 10/08/20 07:40 10/08/20 07:40 10/08/20 07:40 Period Temp Pulse Resp BP Sys/Nelson Pulse Ox Last 24 Hr 98.6 F-100.1 F 66-74 16-18 105-148/55-83 97-100 Intake and Output 10/07/20 10/08/20 10/08/20 21:59 05:59 13:59 Intake Total 200 680 Output Total 800 950 Balance -800 -750 680 Alert oriented Nonlabored breathing Minimal anxiety Left ankle swollen and painful on passive movement Intake & Output: Intake & Output 10/07/20 10/08/20 10/08/20 21:59 05:59 13:59 Intake Total 200 680 Output Total 800 950 Balance -800 -750 680 Intake: Nourishment/Supplement quantity 440 (ml) Oral 200 240 Output: Urine Catheter Amount 950 Void Amount 800 Other: Meal Lunch Percent of Meal Consumed 75% Feeding Ability Independent Nourishment/Supplement name ensure Urine Appearance Clear Clear Uretheral (Geller) Clear Urine Color Bright Yellow Dark Yellow Uretheral (Geller) Bright Yellow OBJ DATA Labs CBC & Chem 7: 10/07/20 06:21 10/07/20 06:21 Labs: Abnormal Lab Results 10/07/20 10/07/20 10/06/20 06:21 06:21 05:50 RBC 2.32 L Hgb 7.6 L Hct 23.8 L MCV 102.6 H MPV 10.9 H Neut % (Auto) 81.1 H Lymph % (Auto) 8.3 L Lymph # (Auto) 0.79 L Carbon Dioxide 19 L Glucose 111 H Calcium 8.3 L 8.3 L ALT 48 H 52 H Total Protein 5.1 L 4.9 L Albumin 2.3 L 2.3 L Albumin/Globulin Ratio 0.8 L 0.9 L 10/06/20 05:50 RBC 2.33 L Hgb 7.6 L Hct 23.6 L MCV 101.3 H MPV 11.0 H Neut % (Auto) 79.6 H Lymph % (Auto) 10.9 L Lymph # (Auto) 0.99 L Carbon Dioxide Glucose Calcium ALT Total Protein Albumin Albumin/Globulin Ratio Meds: Medications Acetaminophen (Acetaminophen 325 Mg Tablet) 650 mg PO Q6HP PRN PRN Reason: PAIN/FEVER > 101 Last Admin: 10/08/20 05:13 Dose: 650 mg Documented by: Acetaminophen/Codeine Phosphate (Acetaminophen W/Codeine #3 1 Tablet) 1 tab PO Q4-6HP PRN PRN Reason: Pain Last Admin: 10/04/20 04:19 Dose: 1 tab Documented by: Hydrocodone Bitart/Acetaminophen (Hydrocodone/Apap 5/325mg Tablet) 1 tab PO Q4HP PRN PRN Reason: PAIN LEVEL 3-6 Last Admin: 10/08/20 08:41 Dose: 1 tab Documented by: Albuterol/Ipratropium (Ipratropium/Albuterol 3 Ml Ampul.Neb) 3 ml NEB Q4HP PRN PRN Reason: Shortness Of Breath Baclofen (Baclofen 10 Mg Tablet) 10 mg PO BIDP PRN PRN Reason: spasms Last Admin: 10/06/20 19:16 Dose: 10 mg Documented by: Docusate Sodium (Docusate Sodium 100 Mg Capsule) 100 mg PO BID [facility] Last Admin: 10/08/20 08:14 Dose: Not Given Documented by: Enoxaparin Sodium (Enoxaparin 40 Mg/0.4 Ml Syringe) 40 mg SQ DAILY [facility] Last Admin: 10/08/20 07:58 Dose: 40 mg Documented by: Hydralazine HCl (Hydralazine 20 Mg/Ml Vial) 0 mg IV Q2HP PRN PRN Reason: Hypertension Magnesium Sulfate (Magnesium Sulfate) 2 gm in 50 mls @ 50 mls/hr IV UD PRN PRN Reason: Magnesium </= 1.6 Potassium Chloride 40 meq/ (Dextrose) 520 mls @ 130 mls/hr IV UD PRN PRN Reason: Potassium < 3 Labetalol HCl (Labetalol 5 Mg/Ml Ml) 0 mg IV Q2HP PRN PRN Reason: Hypertension Ondansetron HCl (Ondansetron 4 Mg/2 Ml Vial) 4 mg IV Q4HP PRN PRN Reason: Nausea And Vomiting Polyethylene Glycol (Polyethylene Glycol 3350 17 Gm Packet) 17 gm PO DAILYP PRN PRN Reason: Constipation Potassium Chloride (Potassium Chloride 20 Meq Tablet) 40 meq PO UD PRN PRN Reason: Potssium is 3-3.5 Potassium Chloride (Potassium Chloride 20 Meq Tablet) 40 meq PO UD PRN PRN Reason: Potassium < 3 Quetiapine Fumarate (Quetiapine 25 Mg Tablet) 25 mg PO HS [facility] Last Admin: 10/07/20 21:58 Dose: 25 mg Documented by: Senna (Sennosides 1 Tablet) 2 tab PO DAILYP PRN PRN Reason: Constipation Simvastatin (Simvastatin 40 Mg Tablet) 40 mg PO QHS [facility] Last Admin: 10/07/20 21:59 Dose: 40 mg Documented by: Sodium Chloride (0.9 % Sodium Chloride 10 Ml Syringe) 10 ml IV Q8 [facility] Last Admin: 10/08/20 05:13 Dose: 10 ml Documented by: A/P Assessment and plan (1) Rhabdomyolysis: Status: Acute (2) Acute renal failure: Status: Acute (3) Weakness: Status: Acute (4) Acute dehydration: Status: Acute (5) UTI (urinary tract infection): Status: Acute (6) Anemia, macrocytic: Status: Acute Narrative A/P Narrative: * Rhabdomyolysis clinically improved with crystalloids and supportive treatment. * Severe weakness/deconditioning ongoing PT OT. SNF transfer awaited * Left ankle swelling -imaging. Orthopedic consult if evidence of fracture * Volume depletion clinically improved with aggressive rehydration * Complicated Klebsiella UTI status post 7 days Rocephin treatment. * ZOHRA secondary to rhabdomyolysis clinically resolved. * Hyperlipemia continue statin * Anxiety disorder continue home dose quetiapine * Hypertension-Systolics at goal. DANILO inhibitor on hold * Macrocytic anemia stable. Normal B12 folate * Prophylaxis Lovenox Plan * Left ankle imaging * PT OT nutrition support * Discharge planning likely SNF on Saturday * Pre-existing medical condition management home medications Time Spent With Patient Time: Total time spent is greater than 50% in coordination of care (as documented) at patient's floor/unit and/or counseling patient: QUALITY VTE Deep Vein Thrombosis/Pulmonary Embolism Present on Admission: No
--- NOTE | 2020-10-08 13:18 | XRay Report ---
INDICATION: pain and diff weight bearing TECHNIQUE: AP, oblique, lateral left ankle COMPARISON: None FINDINGS: Skeletal: Distal tibia and fibula are negative. No fracture. Talus and calcaneus are normal. No osteochondral lesion of the talus Joint spaces: Tibiotalar joint space is normal. Subtalar joint is normalNo significant tibiotalar joint effusion. Subtalar joints are negative Periarticular soft tissue: No significant periarticular soft tissue swelling. No soft tissue gas or radiopaque foreign body IMPRESSION: Negative left ankle Interpreted and Authenticated by: Liam Rubio 10/08/20
[2020-10-08 13:44] LABS: Basophils # (Auto) 0.05 K/mcL (0.00-0.20); Basophils % (Auto) 0.6 % (0.0-2.0); Eosinophils # (Auto) 0.19 K/mcL (0.00-0.70); Eosinophils % (Auto) 2.2 % (0.0-7.0); Hematocrit 24.2 % (41.0-55.0); Lymphocytes # (Auto) 0.81 K/mcL (1.50-4.80); Lymphocytes % (Auto) 9.2 % (15.0-49.0); Mean Cell Volume 101.3 fL (80.0-100.0); Mean Corpuscular HGB Conc 33.1 g/dL (31.0-36.0); Mean Platelet Volume 10.6 fL (7.4-10.4); Monocytes % (Auto) 9.1 % (1.0-12.0); Neutrophils % (Auto) 78.9 % (38.0-78.0); Platelet Count 283 K/mcL (140-440); RBC 2.39 M/mcL (4.50-5.90); Red Cell Distribution Width 12.2 % (11.5-14.5); WBC 8.8 K/mcL (4.5-11.0)
[2020-10-08 14:25] LABS: ALT/SGPT 51 U/L (<40); AST/SGOT 37 U/L (<40); Albumin 2.6 gm/dL (3.2-5.2); Alkaline Phosphatase 71 U/L (39-117); Bilirubin,Direct < 0.2 mg/dL (0-0.3); Bilirubin,Total 0.3 mg/dL (0.1-1.0); Blood Urea Nitrogen 17 mg/dL (8-23); Calcium 8.7 mg/dL (8.6-10.4); Carbon Dioxide 23 mmol/L (22-30); Chloride 99 mmol/L (96-108); Globulin 2.7 gm/dL (2.2-3.7); Glomerular Filtration Rate 89; Glucose 129 mg/dL (70-105); Lactate Dehydrogenase 203 U/L (135-225); Phosphorous 3.4 mg/dL (2.5-4.5); Triglycerides 97 mg/dL (<150); Uric Acid 4.8 mg/dL (2.5-8.0)
[2020-10-08] MEDS: SIMVASTATIN 40 MG TABLET PO SCH (20:49)
[2020-10-08] MEDS: QUEtiapine 25 MG TABLET PO SCH (20:50)
[2020-10-09] MEDS: ACETAMINOPHEN 325 MG TABLET PO PRN ×4 (04:58→23:14)
[2020-10-09 08:22] LABS: Basophils # (Auto) 0.04 K/mcL (0.00-0.20); Basophils % (Auto) 0.5 % (0.0-2.0); Eosinophils # (Auto) 0.21 K/mcL (0.00-0.70); Eosinophils % (Auto) 2.7 % (0.0-7.0); Hematocrit 22.8 % (41.0-55.0); Hemoglobin 7.5 g/dL (13.5-16.5); Lymphocytes # (Auto) 1.01 K/mcL (1.50-4.80); Lymphocytes % (Auto) 12.8 % (15.0-49.0); Mean Cell Volume 101.8 fL (80.0-100.0); Mean Corpuscular HGB Conc 32.9 g/dL (31.0-36.0); Mean Platelet Volume 10.8 fL (7.4-10.4); Monocytes # (Auto) 0.65 K/mcL (0.10-0.90); Monocytes % (Auto) 8.3 % (1.0-12.0); Neutrophils % (Auto) 75.7 % (38.0-78.0); Platelet Count 314 K/mcL (140-440); RBC 2.24 M/mcL (4.50-5.90); Red Cell Distribution Width 12.3 % (11.5-14.5); WBC 7.9 K/mcL (4.5-11.0)
[2020-10-09 08:23] LABS: ALT/SGPT 51 U/L (<40); AST/SGOT 33 U/L (<40); Albumin 2.4 gm/dL (3.2-5.2); Albumin/Globulin Ratio 0.8 (1.0-2.3); Alkaline Phosphatase 72 U/L (39-117); Bilirubin,Direct < 0.2 mg/dL (0-0.3); Bilirubin,Total 0.2 mg/dL (0.1-1.0); Blood Urea Nitrogen 17 mg/dL (8-23); Calcium 8.2 mg/dL (8.6-10.4); Carbon Dioxide 21 mmol/L (22-30); Chloride 101 mmol/L (96-108); Globulin 2.9 gm/dL (2.2-3.7); Glomerular Filtration Rate 94; Glucose 101 mg/dL (70-105); Lactate Dehydrogenase 209 U/L (135-225); Phosphorous 3.5 mg/dL (2.5-4.5); Triglycerides 84 mg/dL (<150); Uric Acid 4.7 mg/dL (2.5-8.0)
[2020-10-09] MEDS: ENOXAPARIN 40 MG/0.4 ML SYRINGE SQ SCH (08:56)
[2020-10-09] MEDS: 0.9 % SODIUM CHLORIDE 10 ML SYRINGE IV SCH ×4 (08:56→21:36)
[2020-10-09] MEDS: HYDROcodone/APAP 5/325MG TABLET PO PRN ×2 (09:00→15:50)
[2020-10-09] MEDS: DOCUSATE SODIUM 100 MG CAPSULE PO SCH ×2 (09:21→21:36)
--- NOTE | 2020-10-09 11:57 | Internal Med Progress Note ---
SUBJECTIVE Subjective Patient information: Note initiated : 10/09/20 at 11:57 am Service Date, if different from initiated Date: [] Patient: Baldemar Polanco 69 y/o M admitted on 09/29/20 for Fall, Down For Several Days. Chief Complaint: [] Interval history: History of present illness: Mr. Polanco is a 69 year old M Presents to the ED by EMS after the ex-spouse found him lying on the ground covered with feces and urine. She last spoke with him 8 days ago. Looks like he had a primary care visit on the . Had generalized pain including neck pain and came in with a c-collar. Poor historian not able to give much of the history. Sounds like there was a question of some left-sided weakness but Work-up in the ED revealed hyponatremia and acute kidney injury with rhabdomyolysis. Urinalysis pending. 09/30 Feels tired. Looks much better. Mentation much better. Has some left wrist pain. 10/01 Feels better. Chemistry much improved. Renal function improved. 10/02 Continues to feel better. Sodium stable. Renal function much improved. No new pains or complaints. Urine culture with gram-negative bacillus x2 10/04: Continues to feel better. Serum CK continue to down trend now 160. Serum Cr level 1.1. Fever with Tmax 38.1 earlier this morning. Denies any muscle cramps or weakness. Denies any pain. Good appetite. Denies dysuria. Fever with Tmax 38.1 earlier this morning. 10/05: Serum CK continue to down trend now 109. Serum Cr level 1.0. Fever with Tmax 38.1 overnight. c/o left forearm muscle cramps. 10/06: Serum CK continue to down trend now 96. Serum Cr level 0.9. Afebrile overnight. Denies any muscle cramps. 10/07: Serum CK level normalized. Serum Cr level 0.8. Fever 38.8 this morning. 10/08-patient doing a lot better this morning. Labs pending. Complains of left ankle swelling and pain. Ordered imaging. T-max 101.9. Clinically improved. Await SNF transfer. 10/09-left ankle swelling improved however persistent pain and difficulty weightbearing. X-ray unremarkable for fracture. Hemoglobin 7.5, 2 units PRBC transfusion. Creatinine back at baseline, ongoing therapies. Anticipate discharge in 24 hours to SNF, case management coordinating Constitutional Vitals: Vital Signs Temp Pulse Resp BP Pulse Ox 98.0 F 72 18 108/62 99 10/09/20 07:57 10/09/20 07:57 10/09/20 07:57 10/09/20 07:57 10/09/20 07:57 Period Temp Pulse Resp BP Sys/Nelson Pulse Ox Last 24 Hr 98 F-99.9 F 69-89 16-20 98-145/61-76 98-100 Intake and Output 10/08/20 10/09/20 10/09/20 21:59 05:59 13:59 Intake Total 240 250 Output Total 600 950 Balance -360 -700 Weight 89.448 kg Alert oriented Nonlabored breathing No anxiety Nondistended abdomen Intake & Output: Intake & Output 10/08/20 10/09/20 10/09/20 21:59 05:59 13:59 Intake Total 240 250 Output Total 600 950 Balance -360 -700 Weight 89.448 kg Intake: Oral 240 250 Output: Urine Catheter Amount 600 950 Other: Meal Dinner Percent of Meal Consumed 75% Feeding Ability Independent Urine Appearance Clear Clear Uretheral (Geller) Clear Urine Color Bright Yellow Dark Yellow Dark Yellow Uretheral (Geller) Dark Yellow Urine Odor Normal OBJ DATA Labs CBC & Chem 7: 10/09/20 05:07 10/09/20 05:07 Labs: Abnormal Lab Results 10/09/20 10/09/20 10/08/20 05:07 05:07 13:18 RBC 2.24 L Hgb 7.5 L Hct 22.8 L MCV 101.8 H MPV 10.8 H Neut % (Auto) Lymph % (Auto) 12.8 L Lymph # (Auto) 1.01 L Sodium 131 L 131 L Carbon Dioxide 21 L Glucose 129 H Calcium 8.2 L ALT 51 H 51 H Total Protein 5.3 L 5.3 L Albumin 2.4 L 2.6 L Albumin/Globulin Ratio 0.8 L 10/08/20 10/07/20 10/07/20 13:18 06:21 06:21 RBC 2.39 L 2.32 L Hgb 8.0 L 7.6 L Hct 24.2 L 23.8 L MCV 101.3 H 102.6 H MPV 10.6 H 10.9 H Neut % (Auto) 78.9 H 81.1 H Lymph % (Auto) 9.2 L 8.3 L Lymph # (Auto) 0.81 L 0.79 L Sodium Carbon Dioxide 19 L Glucose 111 H Calcium 8.3 L ALT 48 H Total Protein 5.1 L Albumin 2.3 L Albumin/Globulin Ratio 0.8 L Meds: Medications Acetaminophen (Acetaminophen 325 Mg Tablet) 650 mg PO Q6HP PRN PRN Reason: PAIN/FEVER > 101 Last Admin: 10/09/20 11:43 Dose: 650 mg Documented by: Acetaminophen/Codeine Phosphate (Acetaminophen W/Codeine #3 1 Tablet) 1 tab PO Q4-6HP PRN PRN Reason: Pain Last Admin: 10/04/20 04:19 Dose: 1 tab Documented by: Hydrocodone Bitart/Acetaminophen (Hydrocodone/Apap 5/325mg Tablet) 1 tab PO Q4HP PRN PRN Reason: PAIN LEVEL 3-6 Last Admin: 10/09/20 09:00 Dose: 1 tab Documented by: Albuterol/Ipratropium (Ipratropium/Albuterol 3 Ml Ampul.Neb) 3 ml NEB Q4HP PRN PRN Reason: Shortness Of Breath Baclofen (Baclofen 10 Mg Tablet) 10 mg PO BIDP PRN PRN Reason: spasms Last Admin: 10/06/20 19:16 Dose: 10 mg Documented by: Docusate Sodium (Docusate Sodium 100 Mg Capsule) 100 mg PO BID [facility] Last Admin: 10/09/20 09:21 Dose: Not Given Documented by: Enoxaparin Sodium (Enoxaparin 40 Mg/0.4 Ml Syringe) 40 mg SQ DAILY [facility] Last Admin: 10/09/20 08:56 Dose: 40 mg Documented by: Hydralazine HCl (Hydralazine 20 Mg/Ml Vial) 0 mg IV Q2HP PRN PRN Reason: Hypertension Magnesium Sulfate (Magnesium Sulfate) 2 gm in 50 mls @ 50 mls/hr IV UD PRN PRN Reason: Magnesium </= 1.6 Potassium Chloride 40 meq/ (Dextrose) 520 mls @ 130 mls/hr IV UD PRN PRN Reason: Potassium < 3 Labetalol HCl (Labetalol 5 Mg/Ml Ml) 0 mg IV Q2HP PRN PRN Reason: Hypertension Ondansetron HCl (Ondansetron 4 Mg/2 Ml Vial) 4 mg IV Q4HP PRN PRN Reason: Nausea And Vomiting Polyethylene Glycol (Polyethylene Glycol 3350 17 Gm Packet) 17 gm PO DAILYP PRN PRN Reason: Constipation Potassium Chloride (Potassium Chloride 20 Meq Tablet) 40 meq PO UD PRN PRN Reason: Potssium is 3-3.5 Potassium Chloride (Potassium Chloride 20 Meq Tablet) 40 meq PO UD PRN PRN Reason: Potassium < 3 Quetiapine Fumarate (Quetiapine 25 Mg Tablet) 25 mg PO HS [facility] Last Admin: 10/08/20 20:50 Dose: 25 mg Documented by: Senna (Sennosides 1 Tablet) 2 tab PO DAILYP PRN PRN Reason: Constipation Simvastatin (Simvastatin 40 Mg Tablet) 40 mg PO QHS [facility] Last Admin: 10/08/20 20:49 Dose: 40 mg Documented by: Sodium Chloride (0.9 % Sodium Chloride 10 Ml Syringe) 10 ml IV Q8 [facility] Last Admin: 10/09/20 11:45 Dose: 10 ml Documented by: A/P Assessment and plan (1) Rhabdomyolysis: Status: Acute (2) Acute renal failure: Status: Acute (3) Weakness: Status: Acute (4) Acute dehydration: Status: Acute (5) UTI (urinary tract infection): Status: Acute (6) Anemia, macrocytic: Status: Acute Narrative A/P Narrative: * Rhabdomyolysis clinically improved with crystalloids and supportive treatment. * Severe weakness/deconditioning ongoing PT OT. SNF transfer awaited * Normocytic anemia-2 units PRBC transfusion. * Left ankle swelling - no evidence of fracture on imaging. * Volume depletion clinically resolved * Complicated Klebsiella UTI resolved status post 7 days Rocephin treatment. * ZOHRA secondary to rhabdomyolysis clinically resolved. * Hyperlipemia continue statin * Anxiety disorder continue home dose quetiapine * Hypertension-Systolics at goal. DANILO inhibitor on hold * Prophylaxis Lovenox Plan * Left ankle imaging * PT OT nutrition support * 2 units PRBC transfusion * Pre-existing medical condition management home medications * Discharge planning per case management Time Spent With Patient Time: Total time spent is greater than 50% in coordination of care (as documented) at patient's floor/unit and/or counseling patient: QUALITY VTE Deep Vein Thrombosis/Pulmonary Embolism Present on Admission: No
[2020-10-09] MEDS ORDERED: 0.9 % SODIUM CHLORIDE 250 ML IV SCH (14:45)
[2020-10-09] MEDS: QUEtiapine 25 MG TABLET PO SCH (21:36)
[2020-10-09] MEDS: SIMVASTATIN 40 MG TABLET PO SCH (21:36)
[2020-10-10] MEDS: 0.9 % SODIUM CHLORIDE 10 ML SYRINGE IV SCH ×3 (04:52→21:20)
[2020-10-10 06:43] LABS: Basophils # (Auto) 0.03 K/mcL (0.00-0.20); Basophils % (Auto) 0.4 % (0.0-2.0); Eosinophils # (Auto) 0.19 K/mcL (0.00-0.70); Eosinophils % (Auto) 2.6 % (0.0-7.0); Hematocrit 28.3 % (41.0-55.0); Hemoglobin 9.1 g/dL (13.5-16.5); Lymphocytes # (Auto) 0.97 K/mcL (1.50-4.80); Lymphocytes % (Auto) 13.4 % (15.0-49.0); Mean Cell Volume 97.6 fL (80.0-100.0); Mean Corpuscular HGB Conc 32.2 g/dL (31.0-36.0); Mean Platelet Volume 10.7 fL (7.4-10.4); Monocytes # (Auto) 0.58 K/mcL (0.10-0.90); Neutrophils % (Auto) 75.6 % (38.0-78.0); Platelet Count 309 K/mcL (140-440); Red Cell Distribution Width 14.3 % (11.5-14.5); WBC 7.2 K/mcL (4.5-11.0)
[2020-10-10 07:43] LABS: ALT/SGPT 52 U/L (<40); AST/SGOT 33 U/L (<40); Albumin 2.5 gm/dL (3.2-5.2); Albumin/Globulin Ratio 0.9 (1.0-2.3); Alkaline Phosphatase 84 U/L (39-117); Bilirubin,Direct < 0.2 mg/dL (0-0.3); Bilirubin,Total 0.5 mg/dL (0.1-1.0); Blood Urea Nitrogen 17 mg/dL (8-23); Calcium 8.4 mg/dL (8.6-10.4); Carbon Dioxide 21 mmol/L (22-30); Chloride 104 mmol/L (96-108); Globulin 2.7 gm/dL (2.2-3.7); Glomerular Filtration Rate 94; Glucose 99 mg/dL (70-105); Lactate Dehydrogenase 197 U/L (135-225); Phosphorous 3.3 mg/dL (2.5-4.5); Triglycerides 92 mg/dL (<150); Uric Acid 4.5 mg/dL (2.5-8.0)
[2020-10-10] MEDS: ENOXAPARIN 40 MG/0.4 ML SYRINGE SQ SCH (08:22)
[2020-10-10] MEDS: HYDROcodone/APAP 5/325MG TABLET PO PRN (08:22)
[2020-10-10] MEDS: DOCUSATE SODIUM 100 MG CAPSULE PO SCH ×2 (08:22→21:20)
--- NOTE | 2020-10-10 14:36 | Internal Med Progress Note ---
SUBJECTIVE Subjective Patient information: Note initiated : 10/10/20 at 2:33 pm Service Date, if different from initiated Date: [] Patient: Baldemar Polanco 69 y/o M admitted on 09/29/20 for Fall, Down For Several Days. Chief Complaint: [] Interval history: History of present illness: Mr. Polanco is a 69 year old M Presents to the ED by EMS after the ex-spouse found him lying on the ground covered with feces and urine. She last spoke with him 8 days ago. Looks like he had a primary care visit on the . Had generalized pain including neck pain and came in with a c-collar. Poor historian not able to give much of the history. Sounds like there was a question of some left-sided weakness but Work-up in the ED revealed hyponatremia and acute kidney injury with rhabdomyolysis. Urinalysis pending. 09/30 Feels tired. Looks much better. Mentation much better. Has some left wrist pain. 10/01 Feels better. Chemistry much improved. Renal function improved. 10/02 Continues to feel better. Sodium stable. Renal function much improved. No new pains or complaints. Urine culture with gram-negative bacillus x2 10/04: Continues to feel better. Serum CK continue to down trend now 160. Serum Cr level 1.1. Fever with Tmax 38.1 earlier this morning. Denies any muscle cramps or weakness. Denies any pain. Good appetite. Denies dysuria. Fever with Tmax 38.1 earlier this morning. 10/05: Serum CK continue to down trend now 109. Serum Cr level 1.0. Fever with Tmax 38.1 overnight. c/o left forearm muscle cramps. 10/06: Serum CK continue to down trend now 96. Serum Cr level 0.9. Afebrile overnight. Denies any muscle cramps. 10/07: Serum CK level normalized. Serum Cr level 0.8. Fever 38.8 this morning. 10/08-patient doing a lot better this morning. Labs pending. Complains of left ankle swelling and pain. Ordered imaging. T-max 101.9. Clinically improved. Await SNF transfer. 10/09-left ankle swelling improved however persistent pain and difficulty weightbearing. X-ray unremarkable for fracture. Hemoglobin 7.5, 2 units PRBC transfusion. Creatinine back at baseline, ongoing therapies. Anticipate discharge in 24 hours to SNF, case management coordinating 10/10-ongoing wound care for deep sacral ulcer. Left ankle pain persistent however able to bear weight and ambulate. Continue Curtis wraps. Status post 2 units blood transfusion hemoglobin stable over 9. Plan to DC Geller's today. Case management coordinating [facility] in 24 hours. Constitutional Vitals: Vital Signs Temp Pulse Resp BP Pulse Ox 99.5 F H 79 20 119/67 98 10/10/20 12:00 10/10/20 12:00 10/10/20 12:00 10/10/20 12:00 10/10/20 12:00 Period Temp Pulse Resp BP Sys/Nelson Pulse Ox Last 24 Hr 98.5 F-101.0 F 68-83 16-20 111-137/65-80 97-99 Intake and Output 10/10/20 10/10/20 10/10/20 05:59 13:59 21:59 Intake Total 200 650 Output Total 1300 700 Balance -1100 -50 Weight 91.172 kg Patient Weight 10/11/20 05:59 Weight 91.172 kg Alert oriented Nonlabored breathing No lymphedema Improved pallor Intake & Output: Intake & Output 10/10/20 10/10/20 10/10/20 05:59 13:59 21:59 Intake Total 200 650 Output Total 1300 700 Balance -1100 -50 Weight 91.172 kg Intake: Nourishment/Supplement quantity 200 (ml) IV 250 Sodium Chloride 0.9% 250 ml @ 250 20 mls/hr IV .[id number] [facility] Rx#: [id number] Oral 200 200 Output: Urine Catheter Amount 1300 700 Other: Meal Breakfast Percent of Meal Consumed 100 Feeding Ability Independent Nourishment/Supplement name Ensure Urine Appearance Clear Urine Color Dark Yellow Urine Odor Uretheral (Geller) Normal OBJ DATA Labs CBC & Chem 7: 10/10/20 05:03 10/10/20 05:03 Labs: Abnormal Lab Results 10/10/20 10/10/20 10/09/20 05:03 05:03 05:07 RBC 2.90 L 2.24 L Hgb 9.1 L 7.5 L Hct 28.3 L 22.8 L MCV 101.8 H MPV 10.7 H 10.8 H Neut % (Auto) Lymph % (Auto) 13.4 L 12.8 L Lymph # (Auto) 0.97 L 1.01 L Sodium Carbon Dioxide 21 L Glucose Calcium 8.4 L ALT 52 H Total Protein 5.2 L Albumin 2.5 L Albumin/Globulin Ratio 0.9 L 10/09/20 10/08/20 10/08/20 05:07 13:18 13:18 RBC 2.39 L Hgb 8.0 L Hct 24.2 L MCV 101.3 H MPV 10.6 H Neut % (Auto) 78.9 H Lymph % (Auto) 9.2 L Lymph # (Auto) 0.81 L Sodium 131 L 131 L Carbon Dioxide 21 L Glucose 129 H Calcium 8.2 L ALT 51 H 51 H Total Protein 5.3 L 5.3 L Albumin 2.4 L 2.6 L Albumin/Globulin Ratio 0.8 L Meds: Medications Acetaminophen (Acetaminophen 325 Mg Tablet) 650 mg PO Q6HP PRN PRN Reason: PAIN/FEVER > 101 Last Admin: 10/09/20 23:14 Dose: 650 mg Documented by: Acetaminophen/Codeine Phosphate (Acetaminophen W/Codeine #3 1 Tablet) 1 tab PO Q4-6HP PRN PRN Reason: Pain Last Admin: 10/04/20 04:19 Dose: 1 tab Documented by: Hydrocodone Bitart/Acetaminophen (Hydrocodone/Apap 5/325mg Tablet) 1 tab PO Q4HP PRN PRN Reason: PAIN LEVEL 3-6 Last Admin: 10/10/20 08:22 Dose: 1 tab Documented by: Albuterol/Ipratropium (Ipratropium/Albuterol 3 Ml Ampul.Neb) 3 ml NEB Q4HP PRN PRN Reason: Shortness Of Breath Baclofen (Baclofen 10 Mg Tablet) 10 mg PO BIDP PRN PRN Reason: spasms Last Admin: 10/06/20 19:16 Dose: 10 mg Documented by: Docusate Sodium (Docusate Sodium 100 Mg Capsule) 100 mg PO BID [facility] Last Admin: 10/10/20 08:22 Dose: 100 mg Documented by: Enoxaparin Sodium (Enoxaparin 40 Mg/0.4 Ml Syringe) 40 mg SQ DAILY [facility] Last Admin: 10/10/20 08:22 Dose: 40 mg Documented by: Hydralazine HCl (Hydralazine 20 Mg/Ml Vial) 0 mg IV Q2HP PRN PRN Reason: Hypertension Magnesium Sulfate (Magnesium Sulfate) 2 gm in 50 mls @ 50 mls/hr IV UD PRN PRN Reason: Magnesium </= 1.6 Potassium Chloride 40 meq/ (Dextrose) 520 mls @ 130 mls/hr IV UD PRN PRN Reason: Potassium < 3 Labetalol HCl (Labetalol 5 Mg/Ml Ml) 0 mg IV Q2HP PRN PRN Reason: Hypertension Ondansetron HCl (Ondansetron 4 Mg/2 Ml Vial) 4 mg IV Q4HP PRN PRN Reason: Nausea And Vomiting Polyethylene Glycol (Polyethylene Glycol 3350 17 Gm Packet) 17 gm PO DAILYP PRN PRN Reason: Constipation Potassium Chloride (Potassium Chloride 20 Meq Tablet) 40 meq PO UD PRN PRN Reason: Potssium is 3-3.5 Potassium Chloride (Potassium Chloride 20 Meq Tablet) 40 meq PO UD PRN PRN Reason: Potassium < 3 Quetiapine Fumarate (Quetiapine 25 Mg Tablet) 25 mg PO HS [facility] Last Admin: 10/09/20 21:36 Dose: 25 mg Documented by: Senna (Sennosides 1 Tablet) 2 tab PO DAILYP PRN PRN Reason: Constipation Simvastatin (Simvastatin 40 Mg Tablet) 40 mg PO QHS [facility] Last Admin: 10/09/20 21:36 Dose: 40 mg Documented by: Sodium Chloride (0.9 % Sodium Chloride 10 Ml Syringe) 10 ml IV Q8 [facility] Last Admin: 10/10/20 04:52 Dose: 10 ml Documented by: A/P Assessment and plan (1) Rhabdomyolysis: Status: Acute (2) Acute renal failure: Status: Acute (3) Weakness: Status: Acute (4) Acute dehydration: Status: Acute (5) UTI (urinary tract infection): Status: Acute (6) Anemia, macrocytic: Status: Acute Narrative A/P Narrative: * Rhabdomyolysis clinically improved with crystalloids and supportive treatment. * Severe weakness/deconditioning ongoing PT OT. SNF transfer awaited * Sacral decubiti managed per wound care. Frequent offloading. * Normocytic anemia-status post 2 units PRBC transfusion. Hemoglobin 9 * Left ankle swelling - no evidence of fracture on imaging. Continue Curtis wrap mobilization as tolerated * Volume depletion clinically resolved * Complicated Klebsiella UTI resolved status post 7 days Rocephin treatment. * ZOHRA secondary to rhabdomyolysis clinically resolved. * Hyperlipemia continue statin * Anxiety disorder continue home dose quetiapine * Hypertension-Systolics at goal. CURTIS inhibitor on hold * Prophylaxis Lovenox Plan * Left ankle Curtis wraps * PT OT nutrition support * Continue wound care/frequent offloading * Pre-existing medical condition management home medications * Discharge planning per case management likely SNF in 24 hours Time Spent With Patient Time: Total time spent is greater than 50% in coordination of care (as documented) at patient's floor/unit and/or counseling patient: QUALITY VTE Deep Vein Thrombosis/Pulmonary Embolism Present on Admission: No
[2020-10-10] MEDS: ACETAMINOPHEN 325 MG TABLET PO PRN ×2 (16:03→23:27)
--- NOTE | 2020-10-10 16:58 | General Surgery Consult Note ---
HPI Data of Consult Primary Care Provider: Shelia Boyd Consult Narrative Patient Information: Note initiated : 10/10/20 at 4:57 pm Service Date, if different from initiated Date: [] Patient: Baldemar Polanco 69 y/o M admitted on 09/29/20 for Fall, Down For Several Days. Chief Complaint: [REVIEWED details pertaining to his admission via ER and subsequent management at [facility]. ] I saw this gentleman along with Anay RN, In Patient wound care nurse, for evaluation of residual skin wounds of gluteal and sacral regions after a fall at home in past,. He was aggressively and appropriately managed for his medical problems. Currently patient is making slow recovery and progressing well with his rehabilitation and awaits transfer to [facility] for continuation of his care. cc:: CC: Jan Chairez [facility] All Active Problems Anemia, macrocytic (Acute) UTI (urinary tract infection) (Acute) Rhabdomyolysis (Acute) Acute renal failure (Acute) Acute hypernatremia (Acute) Weakness (Acute) Acute dehydration (Acute) Renal failure, chronic (Chronic) Arthritis (Chronic) Insomnia (Chronic) History of MRI of lumbar spine (Chronic ~2004) Encounter for health-related screening (Chronic) Low back pain (Chronic) Encounter for special screening examination for neoplasm of prostate (Chronic) Vitiligo (Chronic) Hyperlipidemia (Chronic) Lumbar radiculopathy (Chronic) Dermatitis (Chronic) Vitamin D deficiency, unspecified (Chronic) Abnormal levels of other serum enzymes (Chronic) Blood glucose abnormal (Chronic) Hypertension (Chronic) Medical History Abnormal levels of other serum enzymes Arthritis Blood glucose abnormal Dermatitis Encounter for health-related screening Encounter for special screening examination for neoplasm of prostate History of MRI of lumbar spine (~2004) Also went to [facility] Hyperlipidemia Hypertension Insomnia Low back pain Lumbar radiculopathy Vitamin D deficiency, unspecified Vitiligo Surgical History No pertinent past surgical history Family History Mother Throat cancer Sister Breast cancer Social History marital status: single occupational status: retired [employer] Home Medications and Allergies Home Medications Medication Instructions Recorded Confirmed Type quetiapine 50 mg tablet 50 mg PO QHS #90 tab 08/29/20 09/29/20 Rx lisinopril 10 mg tablet 10 mg PO QDAY #90 tab 09/01/20 09/29/20 Rx simvastatin 40 mg tablet 40 mg PO QHS #90 tab 09/01/20 09/29/20 Rx baclofen 10 mg tablet 10 mg PO BID PRN #60 tab 09/21/20 09/29/20 Rx acetaminophen-codeine 1 tab PO Q4-6HP PRN #20 tab 10/11/20 Rx Allergies Allergy/AdvReac Type Severity Reaction Status Date / Time No Known Drug Allergies Allergy Verified 09/29/20 09:02 Physical Examination Vital Signs Vital signs: Temp Pulse Resp BP Pulse Ox 99.5 F H 79 20 119/67 98 10/10/20 12:00 10/10/20 12:00 10/10/20 12:00 10/10/20 12:00 10/10/20 12:00 General physical appearance General physical exam: well developed, well nourished, no distress, no pain and other (Comfortable, cooperative and conversational. Answered simple questions. Moves well in bed. ) Eyes Eye exam: PERRL ENT ENT exam: normal pinna, normal mucosa and no congestion Head Head exam IM: Present atraumatic and normocephalic Neck Neck exam: no masses, trachea midline and no venous distension Cardiovascular Cardiovascular exam IM: Present normal rate and rhythm Respiratory Respiratory exam: normal respiratory effort and clear to auscultation Abdomen Abdomen: Present soft and non tender Genitourinary Genitourinary (Male): Present normal penis with no external lesions Integumentary Integumentary: Present other (Moisture Dermatitis sacral region and adjacent gluteal folds bialterally, There is demarcating eschar over sacral region. May need debridement later. NO evidence of urine or stool contamination. THere is dry scab / demarcating eschar over left face. Will likely fall off in due course. ) Neurologic Neurologic: Present normal coordination, normal sensation and other (Moves well) Musculoskeletal Musculoskeletal: Present other (Did NOT see him stand and walk. But he is reportedly progressing well with physical therapy.) Psychiatric Psychiatric: Present oriented to person and speech is normal Results Labs Result diagrams: 10/11/20 05:14 10/11/20 05:14 Labs: Abnormal lab results 10/10/20 10/10/20 Range/Units 05:03 05:03 RBC 2.90 L (4.50-5.90) M/mcL Hgb 9.1 L (13.5-16.5) g/dL Hct 28.3 L (41.0-55.0) % MPV 10.7 H (7.4-10.4) fL Lymph % (Auto) 13.4 L (15.0-49.0) % Lymph # (Auto) 0.97 L (1.50-4.80) K/mcL Carbon Dioxide 21 L (22-30) mmol/L Calcium 8.4 L (8.6-10.4) mg/dL ALT 52 H (<40) U/L Total Protein 5.2 L (5.9-8.4) gm/dL Albumin 2.5 L (3.2-5.2) gm/dL Albumin/Globulin Ratio 0.9 L (1.0-2.3) Diabetes panel 10/10/20 Range/Units 05:03 Sodium 136 (133-145) mmol/L Potassium 4.1 (3.3-5.1) mmol/L Chloride 104 (96-108) mmol/L Carbon Dioxide 21 L (22-30) mmol/L BUN 17 (8-23) mg/dL Creatinine 0.7 (0.7-1.2) mg/dL Glucose 99 (70-105) mg/dL Calcium 8.4 L (8.6-10.4) mg/dL AST 33 (<40) U/L ALT 52 H (<40) U/L Alkaline Phosphatase 84 (39-117) U/L Total Protein 5.2 L (5.9-8.4) gm/dL Albumin 2.5 L (3.2-5.2) gm/dL Triglycerides 92 (<150) mg/dL Calcium panel 10/10/20 Range/Units 05:03 Calcium 8.4 L (8.6-10.4) mg/dL Phosphorus 3.3 (2.5-4.5) mg/dL Albumin 2.5 L (3.2-5.2) gm/dL Pituitary panel 10/10/20 Range/Units 05:03 Sodium 136 (133-145) mmol/L Potassium 4.1 (3.3-5.1) mmol/L Chloride 104 (96-108) mmol/L Carbon Dioxide 21 L (22-30) mmol/L BUN 17 (8-23) mg/dL Creatinine 0.7 (0.7-1.2) mg/dL Glucose 99 (70-105) mg/dL Calcium 8.4 L (8.6-10.4) mg/dL Adrenal panel 10/10/20 Range/Units 05:03 Sodium 136 (133-145) mmol/L Potassium 4.1 (3.3-5.1) mmol/L Chloride 104 (96-108) mmol/L Carbon Dioxide 21 L (22-30) mmol/L BUN 17 (8-23) mg/dL Creatinine 0.7 (0.7-1.2) mg/dL Glucose 99 (70-105) mg/dL Calcium 8.4 L (8.6-10.4) mg/dL Total Bilirubin 0.5 (0.1-1.0) mg/dL AST 33 (<40) U/L ALT 52 H (<40) U/L Alkaline Phosphatase 84 (39-117) U/L Total Protein 5.2 L (5.9-8.4) gm/dL Albumin 2.5 L (3.2-5.2) gm/dL All other labs normal. A/P Narrative A/P Narrative: Assessment: Recovering from Rhabdomyolysis, ZOHRA, UTI and Anemia. SCAR ( Anxiety / Depression ) and HTN stable. Resolving skin and soft tissue inflammatory changes of forearm and face. Sacral and gluteal Moisture Dermatitis improving. Adherent eschar over sacral coccygeal region. Plan: Continue ongoing wound care. F/U at wound care in 1 week for debridement. Time Spent With Patient Time: Total time spent is greater than 50% in coordination of care (as documented) at patient's floor/unit and/or counseling patient: Total time spent with greater than 50% in coordination of care (as documented) at patient's floor/unit and/or counseling patient:: 25 - 35 minutes
[2020-10-10] MEDS: SIMVASTATIN 40 MG TABLET PO SCH (21:20)
[2020-10-10] MEDS: QUEtiapine 25 MG TABLET PO SCH (21:20)
[2020-10-11] MEDS: 0.9 % SODIUM CHLORIDE 10 ML SYRINGE IV SCH (06:25)
[2020-10-11 07:21] LABS: Basophils # (Auto) 0.04 K/mcL (0.00-0.20); Basophils % (Auto) 0.6 % (0.0-2.0); Eosinophils # (Auto) 0.16 K/mcL (0.00-0.70); Eosinophils % (Auto) 2.3 % (0.0-7.0); Hematocrit 28.2 % (41.0-55.0); Hemoglobin 9.1 g/dL (13.5-16.5); Lymphocytes # (Auto) 1.13 K/mcL (1.50-4.80); Lymphocytes % (Auto) 16.1 % (15.0-49.0); Mean Cell Volume 98.9 fL (80.0-100.0); Mean Corpuscular HGB Conc 32.3 g/dL (31.0-36.0); Mean Platelet Volume 10.5 fL (7.4-10.4); Monocytes # (Auto) 0.58 K/mcL (0.10-0.90); Monocytes % (Auto) 8.3 % (1.0-12.0); Neutrophils % (Auto) 72.7 % (38.0-78.0); Platelet Count 323 K/mcL (140-440); RBC 2.85 M/mcL (4.50-5.90); Red Cell Distribution Width 13.8 % (11.5-14.5)
[2020-10-11 07:45] LABS: ALT/SGPT 47 U/L (<40); AST/SGOT 28 U/L (<40); Albumin 2.4 gm/dL (3.2-5.2); Albumin/Globulin Ratio 0.8 (1.0-2.3); Alkaline Phosphatase 87 U/L (39-117); Bilirubin,Direct < 0.2 mg/dL (0-0.3); Bilirubin,Total 0.5 mg/dL (0.1-1.0); Blood Urea Nitrogen 16 mg/dL (8-23); Calcium 8.5 mg/dL (8.6-10.4); Carbon Dioxide 21 mmol/L (22-30); Chloride 102 mmol/L (96-108); Glomerular Filtration Rate 94; Glucose 96 mg/dL (70-105); Lactate Dehydrogenase 215 U/L (135-225); Triglycerides 109 mg/dL (<150); Uric Acid 4.3 mg/dL (2.5-8.0)
--- NOTE | 2020-10-11 08:13 | Discharge Summary ---
Discharge Provider Provider Patient information: Note initiated : 10/11/20 at 8:10 am Service Date, if different from initiated Date: [] Patient: Baldemar Polanco 69 y/o M admitted on 09/29/20 for Fall, Down For Several Days. Discharge diagnosis * Rhabdomyolysis clinically improved with crystalloids and supportive treatment. * Severe weakness/deconditioning- Managed with aggressive therapies. Continue PT OT at SNF * Sacral decubiti managed per wound care. Frequent offloading. * Normocytic anemia-status post 2 units PRBC transfusion. Hemoglobin stable around 9 * Left ankle swelling - no evidence of fracture on imaging. Continue Curtis wrap/mobilization as tolerated * Volume depletion clinically resolved * Complicated Klebsiella UTI resolved status post 7 days Rocephin treatment. * ZOHRA secondary to rhabdomyolysis clinically resolved. * Hyperlipemia continue statin * Anxiety disorder continue home dose quetiapine * Hypertension-Systolics at goal. Restart home medications Brief hospital course Mr. Polanco is a 69 year old M Presents to the ED by EMS after the ex-spouse found him lying on the ground covered with feces and urine. She last spoke with him 8 days ago. Looks like he had a primary care visit on the . Had generalized pain including neck pain and came in with a c-collar. Poor historian not able to give much of the history. Sounds like there was a question of some left-sided weakness but Work-up in the ED revealed hyponatremia and acute kidney injury with rhabdomyolysis. Urinalysis pending. 09/30 Feels tired. Looks much better. Mentation much better. Has some left wrist pain. 10/01 Feels better. Chemistry much improved. Renal function improved. 10/02 Continues to feel better. Sodium stable. Renal function much improved. No new pains or complaints. Urine culture with gram-negative bacillus x2 10/04: Continues to feel better. Serum CK continue to down trend now 160. Serum Cr level 1.1. Fever with Tmax 38.1 earlier this morning. Denies any muscle cramps or weakness. Denies any pain. Good appetite. Denies dysuria. Fever with Tmax 38.1 earlier this morning. 10/05: Serum CK continue to down trend now 109. Serum Cr level 1.0. Fever with Tmax 38.1 overnight. c/o left forearm muscle cramps. 10/06: Serum CK continue to down trend now 96. Serum Cr level 0.9. Afebrile overnight. Denies any muscle cramps. 10/07: Serum CK level normalized. Serum Cr level 0.8. Fever 38.8 this morning. 10/08-patient doing a lot better this morning. Labs pending. Complains of left ankle swelling and pain. Ordered imaging. T-max 101.9. Clinically improved. Await SNF transfer. 10/09-left ankle swelling improved however persistent pain and difficulty weightbearing. X-ray unremarkable for fracture. Hemoglobin 7.5, 2 units PRBC transfusion. Creatinine back at baseline, ongoing therapies. Anticipate discharge in 24 hours to SNF, case management coordinating 10/10-ongoing wound care for deep sacral ulcer. Left ankle pain persistent however able to bear weight and ambulate. Continue Curtis wraps. Status post 2 units blood transfusion hemoglobin stable over 9. Plan to [facility] today. Case management coordinating transfer to [facility] likely in 24 hours. 10/11-patient doing a lot better. No overnight events. No concerns per staff. No fever chills nausea vomiting. Ongoing wound care for sacral/gluteal wounds. Continue wound care instructions as per wound physicians. Follow-up PCP on discharge. Date of admission: 09/29/20 14:16 Discharge date: 10/11/20 Primary care physician: Shelia Boyd Consults: 09/29/20 Consult to Physician [CONS] Stat Comment: Consulting Provider: Jan Chairez Reason For Exam: Physician to Consult 10/06/20 08:23 Consult to Physician [CONS] Routine Comment: SNF referral Consulting Provider: [facility] Reason For Exam: Physician to Consult 10/10/20 11:10 Consult to Physician [CONS] Routine Comment: Consulting Provider: Hank Bingham Reason For Exam: wounds Discharge Meds Discharge Medications Home Medications quetiapine 50 mg tablet 50 mg PO QHS #90 tab 08/29/20 [Rx Confirmed 09/29/20 Last Taken Unknown] lisinopril 10 mg tablet 10 mg PO QDAY #90 tab 09/01/20 [Rx Confirmed 09/29/20 Last Taken Unknown] simvastatin 40 mg tablet 40 mg PO QHS #90 tab 09/01/20 [Rx Confirmed 09/29/20 Last Taken Unknown] baclofen 10 mg tablet 10 mg PO BID PRN #60 tab 09/21/20 [Rx Confirmed 09/29/20 Last Taken Unknown] acetaminophen-codeine 1 tab PO Q4-6HP PRN #20 tab 10/11/20 [Rx Last Taken Unknown] COURSE Hospital Course Hospital course: . Discharge diagnosis: . Time Spent with Patient Time attestation: Total time spent providing and/or coordinating discharge services: EXAM Constitutional Vitals: Temp Pulse Resp BP Pulse Ox 98.9 F 69 18 146/73 98 10/11/20 07:01 10/11/20 07:01 10/11/20 07:01 10/11/20 07:01 10/11/20 07:01 Discharge Data Data Completed and Pending Labs on day of discharge: Labs from last 24 hours 10/11/20 10/11/20 05:14 05:14 WBC 7.0 RBC 2.85 L Hgb 9.1 L Hct 28.2 L MCV 98.9 MCH 31.9 MCHC 32.3 RDW 13.8 Plt Count 323 MPV 10.5 H Neut % (Auto) 72.7 Lymph % (Auto) 16.1 [place] % (Auto) 8.3 Eos % (Auto) 2.3 Baso % (Auto) 0.6 Lymph # (Auto) 1.13 L [place] # (Auto) 0.58 Eos # (Auto) 0.16 Baso # (Auto) 0.04 Absolute Neutrophils 5.12 Sodium 134 Potassium 4.0 Chloride 102 Carbon Dioxide 21 L Anion Gap 11.0 BUN 16 Creatinine 0.7 GFR Calculation 94 Glucose 96 Uric Acid 4.3 Calcium 8.5 L Phosphorus 3.0 Magnesium 2.0 Total Bilirubin 0.5 Direct Bilirubin < 0.2 GGT 47 AST 28 ALT 47 H Alkaline Phosphatase 87 Lactate Dehydrogenase 215 Total Protein 5.4 L Albumin 2.4 L Globulin 3.0 Albumin/Globulin Ratio 0.8 L Triglycerides 109 Preliminary micro results at discharge 10/07/20 12:04 Blood Culture - Preliminary Blood 10/07/20 11:50 Blood Culture - Preliminary Blood Discharge Plan Patient/Caregiver Discharge Instructions Activity: ambulate only with your walker and increase activity as tolerated Diet: Regular Diet Instructions: Acetaminophen/Codeine (By mouth), Acute Kidney Injury (DC), Rhabdomyolysis (DC) Activity Restrictions/Additional Instructions: Resume home diet as per nutrition Take all meals up in chair, sitting at 90 degrees, to prevent aspiration. Increase activity as tolerated. OT and PT at SNF. Daily physical and occupational therapy Continue fall precautions. Continue offloading/decubitus care. Wound care per wound physician. Take all medication as directed. Pain medication can cause constipation; take an over the counter stool softener and/or laxative while on pain medication. Return to ER for fever, chills, uncontrolled pain, inability to urinate or have a bowel movement, nausea and/or vomiting, swelling, redness, signs of infection, shortness of breath, chest pain, return of symptoms, or other acute symptom This discharge packet is provided to you to help keep you informed about your care. We want to ensure you get everything you need when you go home. You will also be receiving a call from us in a few days to follow up with you and see how you are doing since your discharge. This gives us a chance to listen to any concerns you maybe experiencing since you were discharged or any additional needs you may have, as well as providing us feedback on your care experience. We strive to always provide excellent care and thank you for your feedback and for choosing [facility]. Prescriptions: New acetaminophen-codeine 300-30 mg Tablet 1 tab PO Q4-6HP PRN (Reason: Pain) Qty: 20 RF: 0 Continued quetiapine [Seroquel] 50 mg tablet 50 mg PO QHS Qty: 90 RF: 0 baclofen 10 mg tablet 10 mg PO BID PRN (Reason: spasms) Qty: 60 RF: 1 lisinopril 10 mg tablet 10 mg PO QDAY Qty: 90 RF: 3 simvastatin 40 mg tablet 40 mg PO QHS Qty: 90 RF: 1 Discontinued acetaminophen-codeine 300-60 mg tablet 1 tab PO Q4-6H PRN (Reason: pain) Qty: 560 RF: 0 Other Ambulatory Orders: Wound Care Instructions (CONT) Location: None Selected Ordered By: Hank Bingham OT Discharge Order (Routine) Location: None Selected Ordered By: Sampson Vargas Physical Therapy at Discharge - General (Routine) Location: None Selected Ordered By: Sampson Vargas Follow Up Plan Follow up with: Hank Bingham MD [Physician] - 10/18/20 12:45 pm (Check-in at 12:45 pm) Shelia Boyd ARNP [Primary Care Provider] - 10/18/20 2:00 pm (Check-in at 2:00 pm) Patient Disposition: Xfer SNF Rehab Potential: Fair I certify that the patient requires SNF services: Yes Overall status at discharge: patient is progressing back to baseline Discharge Orders: Discharge Order (Routine); Ordered 10/11/20 Ordered By: Sampson Vargas Discharge Comment: Report called to [facility] VTE Deep Vein Thrombosis/Pulmonary Embolism Present on Admission: No
[2020-10-11] MEDS: DOCUSATE SODIUM 100 MG CAPSULE PO SCH (09:08)
[2020-10-11] MEDS: ENOXAPARIN 40 MG/0.4 ML SYRINGE SQ SCH (09:09)
[2020-10-11] MEDS: HYDROcodone/APAP 5/325MG TABLET PO PRN (09:09)
== END 2020-10-11 14:30 | DRG 557 ==
LOC: ED 09:02 → ICU 14:16 → MEDSUR 10-03 16:02
PROVIDERS: ADMIT Internal Medicine; ATTEND Internal Medicine